=== PATIENT | male | born 1940 | race Hispanic/Latino ===

== ENCOUNTER 2018-05-17 23:11 | Observation (INO) | payer OTHER ==
[~2018-05-17] VITALS: Ht 317.5 cm; Wt 77.1 kg
[~2018-05-17 23:11] MED LIST: AMLODIPINE BESYL5 MG PO; ATENOLOL50 MG PO; CLOPIDOGREL75 MG PO; CRESTOR10 MG PO; LOSARTAN POTAS100 MG PO; XANAX0.25 MG PO
--- OUTSIDE RECORDS SUMMARY | 2018-05-17 23:12 | XMS REPORT ---
Author Author [facility] Address Unknown Phone Unavailable Care Team Providers Care Interventional Physiatrist Name Role Phone Unavailable Unavailable Payers Payer Name Policy Type Policy Number Effective Date Expiration Date Problems This patient has no known problems. Allergies, Adverse Reactions, Alerts Allergy Name Allergy Type Status Severity Reaction(s) Onset Date Inactive Date Treating Clinician Comments Penicillins DA Active U 2008-11-03 00:00:00 Medications This patient has no known medications.
[2018-05-17 23:54] LABS: BASOPHILS % 0.3 % (0.0-1.0); EOSINOPHILS # (AUTO) 0.2 (0.0-0.4); EOSINOPHILS % 2.6 % (0.0-6.0); HEMATOCRIT 41.5 % (38.2-49.6); HEMOGLOBIN 14.5 g/dL (14.0-18.0); LYMPHOCYTES # (AUTO) 1.8 (1.0-3.2); LYMPHOCYTES % 28.9 % (18.0-39.1); MEAN CORPUSCULAR HEMOGLOBIN 34.4 pg (28-32); MEAN CORPUSCULAR HGB CONC 34.9 g/dL (31-35); MEAN CORPUSCULAR VOLUME 98.6 fL (81-99); MONOCYTES # (AUTO) 0.7 (0.2-0.8); MONOCYTES % 10.6 % (4.4-11.3); NEUTROPHILS # (AUTO) 3.5 (2.1-6.9); NEUTROPHILS % 57.4 % (38.7-80.0); PLATELET COUNT 169 x10e3/uL (140-360); RED BLOOD COUNT 4.21 x10e6/uL (4.3-5.7); RED CELL DISTRIBUTION WIDTH 13.1 % (11.7-14.4)
[2018-05-18] VITALS (10 sets, daily range): BP systolic 108–138; BP diastolic 57–71
[2018-05-18 00:10] LABS: INR 0.89; PROTHROMBIN TIME 12.5 seconds (11.9-14.5)
[2018-05-18 00:11] LABS: PARTIAL THROMBOPLASTIN TIME 57.1 seconds (23.8-35.5)
[2018-05-18 00:18] LABS: ALANINE AMINOTRANSFERASE 14 IU/L (0-55); ALBUMIN 3.8 g/dL (3.5-5.0); ALBUMIN/GLOBULIN RATIO 0.9 (0.8-2.0); ALKALINE PHOSPHATASE 86 IU/L (40-150); ANION GAP 12.1 mmol/L (8-16); BLOOD UREA NITROGEN 13 mg/dL (7-26); BUN/CREATININE RATIO 15 (6-25); CALCIUM 9.3 mg/dL (8.4-10.2); CARBON DIOXIDE 26 mmol/L (22-29); CHLORIDE 101 mmol/L (98-107); CREATINE KINASE 114 IU/L (30-200); CREATININE, SERUM 0.89 mg/dL (0.72-1.25); EST GLOMERULAR FILTRATION RATE > 60 ML/MIN (60-); GLUCOSE 151 mg/dL (74-118); MAGNESIUM 2.2 MG/DL (1.3-2.1); POTASSIUM 4.1 mmol/L (3.5-5.1); SODIUM 135 mmol/L (136-145)
--- NOTE | 2018-05-18 00:33 | Diagnostic Imaging Report ---
EXAMINATION: CHEST SINGLE (PORTABLE) INDICATION: ^CHEST PAIN COMPARISON: Chest x-ray 05/16/2015. FINDINGS: AP view TUBES and LINES: None. LUNGS: Lungs are not well inflated. There are bibasilar atelectasis. There is no evidence of pneumonia or pulmonary edema. PLEURA: No pleural effusion or pneumothorax. HEART AND MEDIASTINUM: The cardiomediastinal silhouette is unremarkable. BONES AND SOFT TISSUES: No acute osseous lesion. Soft tissues are unremarkable. UPPER ABDOMEN: No free air under the diaphragm. IMPRESSION: Hypoinflated lungs with bibasilar atelectasis. Signed by: Dr. Juanjose Jorge M.D. on 05/18/2018 12:30 AM
[2018-05-18] MEDS ORDERED: ONDANSETRON HCL INJ 2MG/ML 2ML 2 MG/ML VIAL IV PRN (01:30)
[2018-05-18] MEDS ORDERED: MORPHINE SULFATE INJ 4 MG/ML INJ 1ML IV PRN (01:30)
[2018-05-18] MEDS ORDERED: NITROGLYCERIN 0.4 MG SUBL SL PRN (01:30)
[2018-05-18] MEDS: FAMOTIDINE 20 MG/2 ML VIAL IV SCH ×2 (01:30→12:30)
[2018-05-18] MEDS ORDERED: DEXTROSE 50% SYRINGE 50 ML IV PRN (01:30)
[2018-05-18 01:39] LABS: COLOR,URINE YELLOW (YELLOW)
[2018-05-18 01:40] LABS: BILIRUBIN,URINE NEGATIVE (NEGATIVE); CLARITY,URINE CLEAR (CLEAR); KETONES,URINE NEGATIVE (NEGATIVE); LEUKOCYTE ESTERASE ,URINE NEGATIVE (NEGATIVE); NITRITE,URINE NEGATIVE (NEGATIVE); PROTEIN,URINE DIPSTICK NEGATIVE (NEGATIVE); URINE UROBILINOGEN 0.2 mg/dL (0.2 - 1)
[2018-05-18 01:44] LABS: EPITHELIAL CELLS,URINE FEW /LPF; RBC,URINE 0-5 /HPF (0-5); WBC,URINE (MAN) 0-5 /HPF (0-5)
[2018-05-18] MEDS ORDERED: CRESTOR5 MG PO (02:26)
[2018-05-18] MEDS ORDERED: MONTELUKAST SOD10 MG PO (02:26)
[2018-05-18] MEDS ORDERED: ATENOLOL25 MG PO (02:26)
[2018-05-18] MEDS ORDERED: ISOSORBIDE MONO30 MG PO (02:26)
[2018-05-18] MEDS ORDERED: ASPIR 8181 MG PO (02:27)
--- NOTE | 2018-05-18 02:38 | NUR ---
Pt received from ER. Pt A&O and in no apparent distress. Pt on tele. Pt at bedside. All safety measures ensured.
[2018-05-18] MEDS: INSULIN LISPRO 100 UNIT/1 ML 3ML VIAL SQ SCH ×4 (07:30→21:52)
--- NOTE | 2018-05-18 07:52 | NUR ---
report given and walking rounds complete
[2018-05-18] MEDS ORDERED: REGADENOSON 0.4 MG/5 ML SYR IV ONE (08:54)
[2018-05-18 12:25] LABS: CREATINE KINASE MB 2.9 ng/mL (0-5.0)
[2018-05-18] MEDS: ASPIRIN 81 MG ENTERIC COATED PO SCH (12:30)
[2018-05-18] MEDS: CLOPIDOGREL BISULFATE 75 MG TAB PO SCH (12:30)
--- NOTE | 2018-05-18 13:01 | NUR ---
SPOKE TO DR. BELL, INFORMED OF TROPONIN I OF 0.363, DR. BELL ORDERED NITRO PASTE TO START OF 2ND PART OF STRESS TEST.
--- NOTE | 2018-05-18 14:42 | Consultation ---
DATE OF CONSULTATION: 05/18/2018 REASON FOR CONSULTATION: Chest pain. CONSULTING PHYSICIAN: Dr. Frost. HISTORY OF PRESENT ILLNESS: This is a pleasant 77-year-old male, who presented with chest pain. According to the patient, yesterday he started having left-sided chest pain that felt like heavy pressure on a scale of 8/10 with no radiation. He stated that chest pain got worse with activity that he decided to come to the emergency room for evaluation. He has history of CAD with multiple stents in the past and has not had any stress test within the last 2-3 years. He denied any palpitation, any diaphoresis, any headache, nausea, or vomiting. Troponin x1 was negative. EKG showed normal sinus rhythm with no ST abnormalities. PAST MEDICAL HISTORY: Diabetes, hypertension, hyperlipidemia, CAD. PAST SURGICAL HISTORY: Cholecystectomy and cardiac catheterization. FAMILY HISTORY: Positive for CAD. SOCIAL HISTORY: No smoking. No drinking. He lives at home with the . MEDICATIONS: He was on amlodipine, aspirin, Plavix, Imdur, Singulair, Crestor, and atenolol. ALLERGIES: HE IS ALLERGIC TO PENICILLIN AND ATORVASTATIN. REVIEW OF SYSTEMS: Negative except those mentioned above. PHYSICAL EXAMINATION: VITAL SIGNS: Temperature 97, heart rate 52, blood pressure 124/58, respirations 16, oxygen saturation 95% on room air. GENERAL: He is awake, alert, and oriented x3. HEENT: Mucous membranes moist. NECK: Supple. LUNGS: Bilateral clear to auscultation. CARDIOVASCULAR: S1, S2 present. ABDOMEN: Soft. NEUROLOGICAL: Intact. EXTREMITIES: With no edema. LABS: Sodium 135, potassium 4.1, chloride 101, CO2 of 26, BUN 13, creatinine 0.89, glucose 151. White blood cell 6.13, hemoglobin 14.5, hematocrit 41.5, platelets 169. PT 12.5, PTT 57.1, INR 0.89. IMPRESSION: 1. Chest pain. 2. Coronary artery disease with stents. 3. Diabetes. 4. Hypertension. 5. Hyperlipidemia. PLAN: 1. We will get serial cardiac enzymes. 2. We will get an echocardiogram to assess the LV and the valve function. 3. Due to his cardiac history of stents and no recent stress test, we will go ahead and [email or web address] Risk and benefit explained to him and he agreed, so we will put him n.p.o. and get a consent. 4. We will continue home medications. Further cardiac workup pending clinical course. Thank you for this consultation. Dictated by Juni Stevenson, DIANE MD TRICIA Shepherd/JENS /[id number]
[2018-05-18] MEDS: NITROGLYCERIN 2% OINT 1 GM PKT TOP SCH ×2 (15:01→18:44)
[2018-05-18] MEDS ORDERED: ONDANSETRON HCL 4 MG ORAL DISINTEGRATING TAB PO PRN (16:45)
[2018-05-18] MEDS ORDERED: FAMOTIDINE 20 MG TAB PO SCH (17:00)
[2018-05-18 17:13] LABS: CREATINE KINASE MB 2.9 ng/mL (0-5.0)
--- NOTE | 2018-05-18 18:45 | NUR ---
Got report from previous nurse. Call light within reach. patient in bed. No pain or distress noted. at bedside
[2018-05-18] MEDS: FAMOTIDINE 20 MG TAB PO SCH (21:50)
[2018-05-19] MEDS: NITROGLYCERIN 2% OINT 1 GM PKT TOP SCH ×3 (00:29→13:22)
[2018-05-19 04:37] VITALS: BP 126/60
[2018-05-19 06:12] LABS: CHOL/HDL RATIO 2.6 (3.9-4.7)
--- NOTE | 2018-05-19 07:12 | NUR ---
Gave report to oncoming nurse. Call light within reach. Patient in bed. at bedside
[2018-05-19] MEDS: INSULIN LISPRO 100 UNIT/1 ML 3ML VIAL SQ SCH ×2 (07:30→13:21)
[2018-05-19 08:38] VITALS: BP 130/73
[2018-05-19] MEDS ORDERED: NITROGLYCERIN 0.4 MG SUBL SL PRN (10:45)
[2018-05-19] MEDS: CLOPIDOGREL BISULFATE 75 MG TAB PO SCH (11:51)
[2018-05-19] MEDS: FAMOTIDINE 20 MG TAB PO SCH (11:51)
[2018-05-19] MEDS: ASPIRIN 81 MG ENTERIC COATED PO SCH (11:51)
[2018-05-19 12:00] VITALS: BP 118/78
[2018-05-19 13:40] VITALS: BP 118/78
[2018-05-19] MEDS ORDERED: LORATADINE10 MG PO (15:06)
[2018-05-19] MEDS ORDERED: FLUTICASONE PRO16 GM (15:09)
[2018-05-19] MEDS ORDERED: TESSALON PERLE100 MG PO (15:10)
[2018-05-19] MEDS ORDERED: MEDROL PO (15:13)
[2018-05-19 16:00] VITALS: BP 147/77
--- NOTE | 2018-05-19 20:50 | Discharge Summary ---
PRIMARY CARE PHYSICIAN: Juventino Cross MD. CONSULTANTS: Fran Patiño MD FINAL DIAGNOSES: 1. Upper respiratory symptoms with most likely allergies, chest congestion, cough. 2. Status post Myoview Cardiolite stress test, only small fixed defect, no active ischemia. 3. Baseline coronary artery disease with previous stents. SUMMARY: The patient is a 77-year-old male with some sinus congestion, cough, and developed some atypical chest pain. The patient came in for evaluation since he has coronary artery disease history. The patient's cardiac enzymes negative. Stress test otherwise unremarkable. No reversible defect. The patient has been cleared by Dr. Malka Pearson and with Dr. Fran Patiño to go home. The patient is otherwise stable. DISCHARGE MEDICATIONS: Discharged home with: 1. Claritin 10 mg daily. 2. Medrol Dosepak. 3. Flonase along with Tessalon Perles. DISPOSITION: The patient is otherwise stable, discharged home today. Follow up with Dr. Patiño as an outpatient. MD MICHELLE Salinas/MODL /[id number]
--- NOTE | 2018-05-21 10:11 | Myoview Stress Test ---
DATE OF STUDY: 05/18/2018 08:29:00 Stress Test - Treadmill ONLY INDICATION: Chest pain. DESCRIPTION OF PROCEDURE: After informed consent, the patient was brought to the stress lab. He was given 11 mCi of technetium-99m Myoview and myocardial perfusion SPECT images obtained in the horizontal long axis and short axis and vertical long axis views. Subsequently, the patient was given 28.1 mCi of technetium-99m Myoview and myocardial perfusion SPECT images obtained in horizontal long and short axis and vertical long axis. Gated images were also obtained. The patient tolerated the procedure without any complication. REPORT: Baseline EKG shows sinus rhythm at 80 beats per minute, normal axis. Right bundle branch block. ST depression V4 to V6. Parameters: 1. Resting heart rate is 80 beats per minute. 2. Maximum heart rate is 104 beats per minute. 3. Resting blood pressure is 126/71 mmHg. 4. Maximum blood pressure 140/77 mmHg. REASON FOR TERMINATION: End point attained. INTERPRETATION: 1. Negative for chest pain. 2. Negative for arrhythmias. 3. Blood pressure response consistent with Lexiscan. 4. More prominent ST depression noted during stress compared to baseline. 5. Analysis of SPECT images reveals [id number] area of decreased radioisotope uptake in the anterior apical and septal davis, which reverses partially in the septal wall. CONCLUSION: The study demonstrates small-to moderate area of anteroapical infarction. There is a small area of septal ischemia. Hypokinesis of the anteroapical wall is noted. Overall ejection fraction is 39%. Fran Patiño MD SC/MODL /[id number]
== END 2018-05-19 16:01 | disposition home or self-care (01) ==
LOC: ER 23:11 → ERHOLD 05-18 01:34 → IMCU 05-18 02:38
PROVIDERS: ADMIT Internal Medicine; ATTEND Internal Medicine
DX: R07.89 Other chest pain (principal); I25.10 Atherosclerotic heart disease of native coronary artery without angina pectoris; I10 Essential (primary) hypertension; E11.9 Type 2 diabetes mellitus without complications; E78.5 Hyperlipidemia, unspecified; J06.9 Acute upper respiratory infection, unspecified; Z88.0 Allergy status to penicillin; Z88.8 Allergy status to other drugs, medicaments and biological substances; Z95.5 Presence of coronary angioplasty implant and graft; Z82.49 Family history of ischemic heart disease and other diseases of the circulatory system; Z79.82 Long term (current) use of aspirin
CPT/HCPCS: 36415 ×3; 71045; 78452; 80053; 80061; 81001; 82550 ×2; 82553 ×2; 82948 ×2; 83735; 84484 ×2; 85025; 85610; 85730; 93005 ×2; 93017; 93306; 99284; A9502; G0378 ×2; J2785

== ENCOUNTER 2018-05-21 16:04 | Emergency (ER) | payer OTHER ==
[~2018-05-21 16:04] MED LIST changes: +ASPIR 8181 MG PO; +ATENOLOL25 MG PO; +CRESTOR5 MG PO; +FLUTICASONE PRO16 GM; +ISOSORBIDE MONO30 MG PO; +LORATADINE10 MG PO; +MEDROL PO; +MONTELUKAST SOD10 MG PO; +TESSALON PERLE100 MG PO
== END 2018-05-21 16:26 | disposition short-term general hospital (02) ==
LOC: ER 16:04
DX: R07.9 Chest pain, unspecified (principal)

== ENCOUNTER → 2018-11-05 | Outpatient (RCR) | payer OTHER ==
--- NOTE | 2018-10-11 12:01 | NUR ---
Voice/Speech Evaluation History: Mr. Conley is a 78 year old male seen at the [facility] for a Voice and Speech Evaluation. PMH includes HTN, heart stents, and depression/anxiety, and possible Parkinsons disease. Per pt/spouse report, pt recently had a head CT completed that showed h/o two CVAs, both several years ago. Pt/spouse stated they are no longer sure if pt still has diagnosis of Parkinsons disease. He does not currently take any medication specifically to treat Parkinsons Disease. Per report, pt began demonstrating symptoms of PD several years ago, but was only diagnosed with possible PD two months ago. Per report, the first symptom was decreased volume of speech and stuttering. Pt then added that hes been walking more slowly for a long time. He denied any falls, but reported that for the last two or three months he has felt very unsteady and is very afraid of falling. Mr. Conley complained that his voice is very soft and people frequently ask him to repeat himself. He described his voice as hoarse and scratchy and at a lower pitch than normal. Pt is retired and lives at home with his . He does not have great vocal demand but would like to be understood the first time he says something. He must concentrate on speaking slowly or his speech gets out of control with stuttering. He feels embarrassed about his voice, so much so that he frequently avoids participating in conversation. Mr. Conley denied any difficulty swallowing. However, he reported frequent coughing. He believed this was due to a chemical exposure many years ago at work. Provided extensive ed re: swallowing difficulty related to Parkinsons Disease. Pt/spouse denied any coughing/choking with meals. Pt noted to cough with each of four sips of water. Current medications: no medications reported Patient/family Goal: to be understood when he speaks Evaluation Results: Acoustic measures: Sound Pressure Level (SPL, acoustic correlate of vocal loudness) measured with a sound level meter at a distance of 40 cm from mouth during 3 voice and speech tasks revealed the following SPL numbers: AverageRangeAdult Male Norm SUSTAINED VOWELS:64 dB61-70 dB80-85 dB READIN dB61-67 dB80-85 dB CONVERSATION:64 dB61-70 dB80-85 dB LENGTH OF SUSTAINED VOWEL11 seconds6-16 [id number] seconds These results represented conversational vocal SPL levels and reduced vocal intonation that likely significantly reduce Mr. Tong speech intelligibility and communicative effectiveness. He also has difficulty with vocal fading and reduced diaphragmatic support, lending to quiet speech. Perceptual measures: Mr. Tong functional speech intelligibility is reduced 75% of the time. The patient reported that he is not loud enough in conversation 90% of the time. 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 Oral Motor Examination: An oral motor speech exam revealed the structures and function of Mr. Tong speech mechanism to be within normal limits. Average pitch range for sustained vowel was 148-250 Hz. Normal pitch range for adult males is 65-260 Hz. Stimulability Testing: Stimulability testing was completed to determine Mr. Tong stimulability for the [facility] LOU[facility] ([facility]) program. With stimulation and cues to increase loudness, Mr. Conley maintained vocal loudness during sustained vowel phonation at 80 dB, and increased his speech loudness in functional phrases to 79 dB. Length of sustained phonation was 9 seconds. Vocal quality improved and frequency of stuttering decreased with increased loudness. 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 Voice deficits included reduced loudness, reduced pitch range, and poor breath support, which contributed to an overall decrease in speech intelligibility. Based on stimulability testing, Mr. Conley appears to be a good candidate for the [facility]T LOU[facility] program. He falls below average speech production of adult males of 80-85 dB. He would benefit from training in LSVT LOUD to improve speech production including duration of speech, intelligibility, and participation in conversation in social situations. Prognosis: Good for goals secondary to high level of patient motivation Recommendations: 1. It is recommended that Mr. Conley participate in the [facility]T LOU[facility] program, which is comprised of 16 intensive sessions (4 days per week for 4 weeks; 60 minute sessions) of voice treatment. 2.Recommend modified barium swallow study to r/o aspiration and determine if treatment is indicated. 3.Recommend evaluation and treatment as indicated by a physical therapist. Long-Term Goal: Patient will use a loud voice to communicate effectively in daily interactions with family and friends with independence. Short-Term Goals (first 2 weeks): 1.Patient will increase vocal loudness during sustained phonation to reach a target sound pressure level of 80 dB with minimal cues measured at 40 cm from SPL instrument. 2.Patient will increase length of sustained vowel to 10-15 seconds with minimal assistance. 3.Patient will increase pitch range of sustained vowel to 85-300 Hz with minimal assistance. 4.Pt will produce common, functional phrases to promote carry-over of techniques into the home environment at a target sound pressure level of 80 dB with minimal cues measured at 40 cm from SPL instrument. 5.Patient will increase vocal loudness to reach a target sound pressure level of 80 dB while reading at the word and sentence level with minimal cues measured at 40 cm from SPL instrument. 6.Patient will increase vocal loudness to reach a target sound pressure level of 80 dB during simple, structured conversational speech with minimal cues measured at 40 cm from SPL instrument. Short-Term Goals (next 2 weeks): 1.Patient will reach a target sound pressure level of 80-85 dB measured at 40 cm from SPL instrument during sustained phonation with minimal to no cues to increase loudness and to increase duration of phonation. 2.Patient will increase length of sustained vowel to 10-15 seconds with minimal to no cues. 3.Patient will increase pitch range of sustained vowel to 85-300 Hz with minimal to no cues. 4.Pt will produce common, functional phrases to promote carry-over of techniques into the home environment at a target sound pressure level of 80 dB with minimal to no cues measured at 40 cm from SPL instrument. 5.Patient will increase vocal loudness to read a target sound pressure level of 80 dB during more complex paragraph level reading with minimal cues measured at 40 cm from EDUCATION AND OUTREACH COORDINATOR instrument. 6.Patient will increase vocal loudness to reach a target sound pressure level of 80 dB during structured and unstructured conversational speech with minimal to no cues measured at 40 cm from SPL instrument. Deirdre Beck M.A. [facility]-EDUCATION AND OUTREACH COORDINATOR LSVT LOUD Certified Clinician Date of Eval: 06/26/18 Voice Evaluation X 60 minutes NOMS Voice Level 3
--- NOTE | 2018-10-25 09:03 | NUR ---
ST NOTE: Pt cx session of Speech therapy today due to inclement weather. Next session 10/26/18 at 1000.
== END ==
LOC: ST 10-11 10:15 → PT 10-29 08:28
PROVIDERS: ATTEND Psychiatry & Neurology Clinical Neurophysiology
DX: G20 Parkinson's disease (principal); R49.0 Dysphonia; I10 Essential (primary) hypertension; F41.9 Anxiety disorder, unspecified; Z95.5 Presence of coronary angioplasty implant and graft

== ENCOUNTER → 2018-12-06 | Outpatient (RCR) | payer OTHER ==
--- NOTE | 2018-11-08 11:38 | NUR ---
Voice Re-assessment and Treatment History: Mr. Conley is a 78 year old male seen at the [facility] for a Voice and Speech Evaluation. PMH includes HTN, heart stents, and depression/anxiety, and possible Parkinsons disease. Per pt/spouse report, pt recently had a head CT completed that showed h/o two CVAs, both several years ago. Pt/spouse stated they are no longer sure if pt still has diagnosis of Parkinsons disease. He does not currently take any medication specifically to treat Parkinsons Disease. Per report, pt began demonstrating symptoms of PD several years ago, but was only diagnosed with possible PD two months ago. Per report, the first symptom was decreased volume of speech and stuttering. Pt then added that hes been walking more slowly for a long time. He denied any falls, but reported that for the last two or three months he has felt very unsteady and is very afraid of falling. Mr. Conley complained that his voice is very soft and people frequently ask him to repeat himself. He described his voice as hoarse and scratchy and at a lower pitch than normal. Pt is retired and lives at home with his . He does not have great vocal demand but would like to be understood the first time he says something. He must concentrate on speaking slowly or his speech gets out of control with stuttering. He feels embarrassed about his voice, so much so that he frequently avoids participating in conversation. Mr. Conley denied any difficulty swallowing. However, he reported frequent coughing. He believed this was due to a chemical exposure many years ago at work. Provided extensive ed re: swallowing difficulty related to Parkinsons Disease. Pt/spouse denied any coughing/choking with meals. Pt noted to cough with sips of water during therapy. Current medications: no medications reported Patient/family Goal: to be understood when he speaks Evaluation Results: Acoustic measures: Sound Pressure Level (SPL, acoustic correlate of vocal loudness) measured with a sound level meter at a distance of 40 cm from mouth during 9 sessions of LSVT voice and speech tasks revealed the following SPL numbers: Average Range Adult Male Norm SUSTAINED VOWELS: 92 dB 87-95 dB 80-85 dB READIN dB 67-75 dB 80-85 dB CONVERSATION: 67 dB 67-69 dB 80-85 dB LENGTH OF SUSTAINED VOWEL 13.1 seconds 10.3-14.8 seconds 15-25 seconds These results represented conversational vocal SPL levels and reduced vocal intonation that likely significantly reduce Mr. Tong speech intelligibility and communicative effectiveness. He also has difficulty with vocal fading and reduced diaphragmatic support, lending to quiet speech. Perceptual measures: Mr. Tong functional speech intelligibility is reduced 75% of the time. The patient reported that he is not loud enough in conversation 90% of the time. 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 Oral Motor Examination: An oral motor speech exam revealed the structures and function of Mr. Tong speech mechanism to be within normal limits. 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 Voice deficits included reduced loudness, reduced pitch range, and poor breath support, which contributed to an overall decrease in speech intelligibility. Based on stimulability testing, Mr. Conley appears to be a good candidate for the LSVT LOUD program. He falls below average speech production of adult males of 80-85 dB. He would benefit from training in LSVT LOUD to improve speech production including duration of speech, intelligibility, and participation in conversation in social situations. Prognosis: Good for goals secondary to high level of patient motivation Pt seen for [facility] ([facility] LOU[facility]) secondary to a moderate voice disorder. Short-Term Goals (second 2 weeks) and progress follow: 1.Patient will reach a target sound pressure level of 80-85 dB measured at 40 cm from SPL instrument during sustained phonation with minimal to no cues to increase loudness and to increase duration of phonationpt produced sustained phonation at an average of 95 dB measured 40 cm from SPL instrument. 2.Patient will increase length of sustained vowel to 10-15 seconds with minimal assistancept produced sustained phonation for an average of 10.3 seconds. 3.Patient will increase pitch range of sustained vowel to 85-300 Hz with minimal assistancept produced sustained phonation at an average range of 122-441 Hz. 4.Pt will produce common, functional phrases to promote carry-over of techniques into the home environment at a target sound pressure level of 80 dB with minimal cues measured at 40 cm from SPL instrumentpt produced functional phrases at an average of 70 dB measured at 40 cm from SPL instrument. 5.Patient will increase vocal loudness to read a target sound pressure level of 80 dB during sentence level reading with minimal cues measured at 40 cm from COMMODITY SPECIALIST instrumentpt produced paragraph reading at an average of 70 dB measured at 40 cm from SPL instrument. 6.Patient will increase vocal loudness to reach a target sound pressure level of 80 dB during structured and unstructured conversational speech with minimal to no cues measured at 40 cm from SPL instrumentpt participated in simple structured conversation at an average of 67 dB measured at 40 cm from SPL instrument. Assessment: Excellent participation in and tolerance of therapy. Decrease in loudness in reading aloud expected since level of demand has increased. Pt continues to have decreased volume during unstructured conversational speech, especially at the end of sentences, but is very responsive to cues to increase loudness. Education completed as indicated with pt indicating understanding. Plan: CPOC Rachel Ramirez M.S. CCC-COMMODITY SPECIALIST [facility]SVT L[facility] Certified Clinician Date of Eval: 11/08/18 Voice re-assessment and treatment X 45 minutes NOMS Voice Level 3 MD Signature date
--- NOTE | 2018-11-15 10:33 | NUR ---
ST NOTE: Pt missed therapy apt due to MD apt, pt with unsteady BP. He will call if he will not be present for therapy apt on 11/16/18
--- NOTE | 2018-11-16 10:20 | NUR ---
ST NOTE: PT missed therapy session, next apt scheduled for Monday, will call pt prior to next visit, pt with MD apt yesterday.
--- NOTE | 2018-11-23 11:09 | NUR ---
Voice Re-assessment/discharge and Treatment History: Mr. Conley is a 78 year old male seen at the [facility] for a Voice and Speech Evaluation. PMH includes HTN, heart stents, and depression/anxiety, and possible Parkinsons disease. Per pt/spouse report, pt recently had a head CT completed that showed h/o two CVAs, both several years ago. Pt/spouse stated they are no longer sure if pt still has diagnosis of Parkinsons disease. He does not currently take any medication specifically to treat Parkinsons Disease. Per report, pt began demonstrating symptoms of PD several years ago, but was only diagnosed with possible PD two months ago. Per report, the first symptom was decreased volume of speech and stuttering. Pt then added that hes been walking more slowly for a long time. He denied any falls, but reported that for the last two or three months he has felt very unsteady and is very afraid of falling. Mr. Conley complained that his voice is very soft and people frequently ask him to repeat himself. He described his voice as hoarse and scratchy and at a lower pitch than normal. Pt is retired and lives at home with his . He does not have great vocal demand but would like to be understood the first time he says something. He must concentrate on speaking slowly or his speech gets out of control with stuttering. He feels embarrassed about his voice, so much so that he frequently avoids participating in conversation. Mr. Conley denied any difficulty swallowing. However, he reported frequent coughing. He believed this was due to a chemical exposure many years ago at work. Provided extensive ed re: swallowing difficulty related to Parkinsons Disease. Pt/spouse denied any coughing/choking with meals. Pt noted to cough with sips of water during therapy. Current medications: no medications reported Patient/family Goal: to be understood when he speaks Evaluation Results: Acoustic measures: Sound Pressure Level (SPL, acoustic correlate of vocal loudness) measured with a sound level meter at a distance of 40 cm from mouth during 9 sessions of LSVT voice and speech tasks revealed the following SPL numbers: Average Range Adult Male Norm SUSTAINED VOWELS: 91 dB 87-95 dB 80-85 dB READIN dB 66-75 dB 80-85 dB CONVERSATION: 68 dB 67-69 dB 80-85 dB LENGTH OF SUSTAINED VOWEL 13.1 seconds 10.3-14.8 seconds 15-25 seconds These results represented conversational vocal SPL levels and reduced vocal intonation that likely significantly reduce Mr. Tong speech intelligibility and communicative effectiveness. He also has difficulty with vocal fading and reduced diaphragmatic support, lending to quiet speech. Perceptual measures: Mr. Tong functional speech intelligibility is reduced 75% of the time. The patient reported that he is not loud enough in conversation 90% of the time. 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 Oral Motor Examination: An oral motor speech exam revealed the structures and function of Mr. Tong speech mechanism to be within normal limits. 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 Voice deficits included reduced loudness, reduced pitch range, and poor breath support, which contributed to an overall decrease in speech intelligibility. Based on stimulability testing, Mr. Conley appears to be a good candidate for the LSVT LOUD program. He falls below average speech production of adult males of 80-85 dB. He would benefit from training in LSVT LOUD to improve speech production including duration of speech, intelligibility, and participation in conversation in social situations. Prognosis: Good for goals secondary to high level of patient motivation Pt seen for [facility] Voice [facility] (LSVT LOUD) secondary to a moderate voice disorder. Short-Term Goals (second 2 weeks) and progress follow: 1.Patient will reach a target sound pressure level of 80-85 dB measured at 40 cm from SPL instrument during sustained phonation with minimal to no cues to increase loudness and to increase duration of phonationpt produced sustained phonation at an average of 94 dB measured 40 cm from SPL instrument. 2.Patient will increase length of sustained vowel to 10-15 seconds with minimal assistancept produced sustained phonation for an average of 12.5 seconds. 3.Patient will increase pitch range of sustained vowel to 85-300 Hz with minimal assistancept produced sustained phonation at an average range of 112-461 Hz. 4.Pt will produce common, functional phrases to promote carry-over of techniques into the home environment at a target sound pressure level of 80 dB with minimal cues measured at 40 cm from SPL instrumentpt produced functional phrases at an average of 70 dB measured at 40 cm from SPL instrument. 5.Patient will increase vocal loudness to read a target sound pressure level of 80 dB during sentence level reading with minimal cues measured at 40 cm from AMUSEMENT [employer]IC instrumentpt produced paragraph reading at an average of 67 dB measured at 40 cm from SPL instrument. 6.Patient will increase vocal loudness to reach a target sound pressure level of 80 dB during structured and unstructured conversational speech with minimal to no cues measured at 40 cm from SPL instrumentpt participated in simple structured conversation at an average of 68 dB measured at 40 cm from SPL instrument. Assessment: Excellent participation in and tolerance of therapy. Decrease in loudness in reading aloud expected since level of demand has increased. Pt continues to have decreased volume during unstructured conversational speech, especially at the end of sentences, but is very responsive to cues to increase loudness. Education completed as indicated with pt indicating understanding. Plan: Discharge pt from voice therapy. Pt has had decrease in progress secondary to fluctuating blood pressure. Pt would benefit from d/c as he completed the LSVT Program with several rescheduled appointments and medical concerns. Recommend re-assess pt for voice quality in February of 2019 along with Modified Barium Swallow to assess swallow function. Rachel Ramirez M.S. CCC-AMUSEMENT [employer] LSVT LOUD Certified Clinician Date of Eval: 11/23/18 Voice re-assessment/discharge and treatment X 50 minutes NOMS Voice Level 4
== END ==
LOC: PT 11-07 10:05 → ST 11-09 09:55 → PT 11-12 10:45 → ST 11-13 09:59 → PT 11-22 10:07 → ST 11-23 09:57 → PT 12-03 11:00
PROVIDERS: ATTEND Psychiatry & Neurology Clinical Neurophysiology
DX: G20 Parkinson's disease (principal); R49.9 Unspecified voice and resonance disorder; I10 Essential (primary) hypertension; F41.9 Anxiety disorder, unspecified; F32.9 Major depressive disorder, single episode, unspecified; I69.30 Unspecified sequelae of cerebral infarction; Z95.5 Presence of coronary angioplasty implant and graft

== ENCOUNTER 2018-12-28 10:50 | Outpatient (RCR) | payer OTHER | END 2019-01-05 | LOC: PT 10:50 | PROVIDERS: ATTEND Psychiatry & Neurology Clinical Neurophysiology | DX: G20 Parkinson's disease (principal); R49.8 Other voice and resonance disorders; I10 Essential (primary) hypertension; F41.9 Anxiety disorder, unspecified; Z95.5 Presence of coronary angioplasty implant and graft ==

== ENCOUNTER → 2019-02-08 | Outpatient (CLI) | payer MEDICARE ==
--- NOTE | 2019-02-08 12:46 | Diagnostic Imaging Report ---
PROCEDURE: X-RAY MODIFIED BARIUM SWALLOW COMPARISON: None. INDICATION: Aspiration Radiation Details: Fluoroscopy time: 1.3 minutes Cumulative dose: 4.8 mGy DISCUSSION: Fluoroscopic examination was performed in conjunction with speech pathology during swallowing a variety of thin and thick liquid consistencies. Provided images demonstrate no laryngeal penetration or aspiration. CONCLUSION: Modified barium swallow demonstrating no laryngeal penetration or aspiration. Please refer to the speech pathology report for further details. Signed by: Janine Lopez MD on 02/08/2019 12:43 PM
== END ==
LOC: DX 10:33
PROVIDERS: ATTEND Psychiatry & Neurology Clinical Neurophysiology
DX: R13.10 Dysphagia, unspecified (principal); G20 Parkinson's disease; I10 Essential (primary) hypertension; F41.9 Anxiety disorder, unspecified; Z86.73 Personal history of transient ischemic attack (TIA), and cerebral infarction without residual deficits; Z95.5 Presence of coronary angioplasty implant and graft
CPT/HCPCS: 74230

== ENCOUNTER 2019-12-22 19:44 | Emergency (ER) | payer MEDICARE, OTHER ==
[~2019-12-22] VITALS: Ht 317.5 cm; Wt 77.1 kg
[2019-12-22 20:17] LABS: BASOPHILS % 0.1 % (0.0-1.0); EOSINOPHILS % 0.4 % (0.0-6.0); HEMATOCRIT 39.3 % (38.2-49.6); HEMOGLOBIN 13.9 g/dL (14.0-18.0); LYMPHOCYTES # (AUTO) 0.9 (1.0-3.2); LYMPHOCYTES % 9.7 % (18.0-39.1); MEAN CORPUSCULAR HEMOGLOBIN 33.9 pg (28-32); MEAN CORPUSCULAR HGB CONC 35.4 g/dL (31-35); MEAN CORPUSCULAR VOLUME 95.9 fL (81-99); MONOCYTES # (AUTO) 0.5 (0.2-0.8); MONOCYTES % 5.7 % (4.4-11.3); NEUTROPHILS # (AUTO) 7.6 (2.1-6.9); NEUTROPHILS % 83.6 % (38.7-80.0); PLATELET COUNT 171 x10e3/uL (140-360); RED CELL DISTRIBUTION WIDTH 12.7 % (11.7-14.4)
[2019-12-22 20:36] LABS: ALBUMIN 3.8 g/dL (3.5-5.0); ALBUMIN/GLOBULIN RATIO 0.9 (0.8-2.0); ALKALINE PHOSPHATASE 71 IU/L (40-150); ANION GAP 12.7 mmol/L (8-16); BLOOD UREA NITROGEN 13 mg/dL (7-26); BUN/CREATININE RATIO 16 (6-25); CALCIUM 8.5 mg/dL (8.4-10.2); CARBON DIOXIDE 22 mmol/L (22-29); CHLORIDE 97 mmol/L (98-107); CREATINE KINASE 51 IU/L (30-200); EST GLOMERULAR FILTRATION RATE > 60 ML/MIN (60-); GLUCOSE 124 mg/dL (74-118); POTASSIUM 3.7 mmol/L (3.5-5.1); SODIUM 128 mmol/L (136-145)
--- NOTE | 2019-12-22 20:38 | Emergency Department Note ---
History of Present Illnes History of Present Illness Chief Complaint: COVID PUI History of Present Illness This is a 79 year old male (COVID + 12/12/2019) PRESENTS TO ED WITH REPORT OF HICCUPS CAUSING CHEST TIGHTNESS PER PTS DAUGHTER, PT DENIES ANY CHEST PAIN, TIGHTNESS, OR PRESSURE, NO HICCUPS NOTED; DAUGHTER STATES PT IS STRESSED PTS SPOUSE "IS ADMITTED IN ICU AND NOT DOING WELL." RESP ARE EVEN AND UNLABORED, O2 SAT RA 99%; SKIN WARM, DRY, COLOR WNL FOR PT. Historian: Patient, Family Member Arrival Mode: Car Onset (how long ago): hour(s) (12) Location: THROAT, CHEST Quality: HICCUPS, CHEST TIGHTNESS Radiation: Reports non-radiation Severity: mild Onset quality: sudden Duration (how long): hour(s) (12) Timing of current episode: constant Progression: resolved Chronicity: new Context: Reports recent illness (POSITIVE FOR COVID 19 10 DAYS AGO) Relieving factors: none Exacerbating factors: none Associated symptoms: Reports denies other symptoms Treatments prior to arrival: none Past Medical/Family History Physician Review I have reviewed the patient's past medical and family history. Any updates have been documented here. Past Medical History Recent Fever: No Clinical Suspicion of Infectio: No New/Unexplained Change in Ment: No Past Medical History: Hypertension, Diabetes Other Medical History: COVID + 12/12/[address] Freddy MARTINES'S OFFICE Past Surgical History: None Social History Smoking Cessation: Never Smoker Counseling Performed: No Alcohol Use: None Any Illegal Drug Use: No Physically hurt or threatened: No Other Last Tetanus: UTD Any Pre-Existing Lines (PICC,: No Review of Systems Review of Systems Constitutional: Reports no symptoms EENTM: Reports as per HPI Cardiovascular: Reports as per HPI Respiratory: Reports no symptoms Gastrointestinal: Reports no symptoms Genitourinary: Reports no symptoms Musculoskeletal: Reports no symptoms Integumentary: Reports no symptoms Neurological: Reports no symptoms Psychological: Reports no symptoms Endocrine: Reports no symptoms Hematological/Lymphatic: Reports no symptoms Physical Exam Related Data Allergies: Coded Allergies: penicillin (Verified Allergy, Mild, RASH/ FEVER, 05/16/15) atorvastatin (Verified Allergy, Unknown, 05/17/18) Triage Vital Signs Vital Signs Date Time Temp Pulse Resp B/P (MAP) Pulse Ox O2 Delivery O2 Flow Rate FiO2 12/22/19 19:50 100.5 84 16 154/72 99 Room Air Vital signs reviewed: Yes Physical Exam CONSTITUTIONAL Constitutional: Present well-developed, Present well-nourished; Absent distressed HENT HENT: Present normocephalic, Present atraumatic, Present oropharynx clear/moist, Present nose normal HENT L/R: Present left ext ear normal, Present right ext ear normal EYES Eyes: Reports PERRL, Reports conjunctivae normal NECK Neck: Present ROM normal PULMONARY Pulmonary: Present effort normal, Present breath sounds normal CARDIOVASCULAR Cardiovascular: Present regular rhythm, Present heart sounds normal, Present capillary refill normal, Present normal rate GASTROINTESTINAL Abdominal: Present soft, Present nontender, Present bowel sounds normal GENITOURINARY Genitourinary: Present exam deferred SKIN Skin: Present warm, Present dry MUSCULOSKELETAL Musculoskeletal: Present ROM normal NEUROLOGICAL Neurological: Present alert, Present oriented x 3, Present no gross motor or sensory deficits PSYCHOLOGICAL Psychological: Present mood/affect normal, Present judgement normal Results Laboratory Result Diagram: 12/22/192002 Laboratory Laboratory Tests Test 12/22/19 20:21 12/22/19 20:09 12/22/19 20:03 Lactic Acid Level 1.0 mmol/L (0.5-2.0) Urine Color Yellow (YELLOW) Urine Clarity Clear (CLEAR) Urine pH 8.5 (5 - 7) Urine Specific [place] 1.020 (1.010-1.025) Urine Protein Negative (NEGATIVE) Urine Glucose (UA) Negative (NEGATIVE) Urine Ketones Negative (NEGATIVE) Urine Blood Trace (NEGATIVE) Urine Nitrite Negative (NEGATIVE) Urine Bilirubin Negative (NEGATIVE) Urine Urobilinogen 1 mg/dL (0.2 - 1) Urine Leukocyte Esterase Negative (NEGATIVE) Urine RBC 0-5 /HPF (0-5) Urine WBC 0-5 /HPF (0-5) Urine Epithelial Cells Few /LPF (NONE) Urine Bacteria Few /HPF (NONE) White Blood Count 9.15 x10e3/uL (4.8-10.8) Red Blood Count 4.10 x10e6/uL (4.3-5.7) Hemoglobin 13.9 g/dL (14.0-18.0) Hematocrit 39.3 % (38.2-49.6) Mean Corpuscular Volume 95.9 fL (81-99) Mean Corpuscular Hemoglobin 33.9 pg (28-32) Mean Corpuscular Hemoglobin Concent 35.4 g/dL (31-35) Red Cell Distribution Width 12.7 % (11.7-14.4) Platelet Count 171 x10e3/uL (140-360) Neutrophils (%) (Auto) 83.6 % (38.7-80.0) Lymphocytes (%) (Auto) 9.7 % (18.0-39.1) Monocytes (%) (Auto) 5.7 % (4.4-11.3) Eosinophils (%) (Auto) 0.4 % (0.0-6.0) Basophils (%) (Auto) 0.1 % (0.0-1.0) Neutrophils # (Auto) 7.6 (2.1-6.9) Lymphocytes # (Auto) 0.9 (1.0-3.2) Monocytes # (Auto) 0.5 (0.2-0.8) Eosinophils # (Auto) 0.0 (0.0-0.4) Basophils # (Auto) 0.0 (0.0-0.1) Absolute Immature Granulocyte (auto 0.05 x10e3/uL (0-0.1) Sodium Level 128 mmol/L (136-145) Potassium Level 3.7 mmol/L (3.5-5.1) Chloride Level 97 mmol/L (98-107) Carbon Dioxide Level 22 mmol/L (22-29) Anion Gap 12.7 mmol/L (8-16) Blood Urea Nitrogen 13 mg/dL (7-26) Creatinine 0.80 mg/dL (0.72-1.25) Estimat Glomerular Filtration Rate > 60 ML/MIN (60-) BUN/Creatinine Ratio 16 (6-25) Glucose Level 124 mg/dL (74-118) Calcium Level 8.5 mg/dL (8.4-10.2) Total Bilirubin 1.1 mg/dL (0.2-1.2) Aspartate Amino Transf (AST/SGOT) 10 IU/L (5-34) Alanine Aminotransferase (ALT/SGPT) < 6 IU/L (0-55) Alkaline Phosphatase 71 IU/L (40-150) Creatine Kinase 51 IU/L (30-200) Creatine Kinase MB 0.90 ng/mL (0-5.0) Troponin I 0.014 ng/mL (0-0.300) Total Protein 7.9 g/dL (6.5-8.1) Albumin 3.8 g/dL (3.5-5.0) Globulin 4.1 g/dL (2.3-3.5) Albumin/Globulin Ratio 0.9 (0.8-2.0) Influenza Virus Types A,B Antigen Positive flu a (NEGATIVE) Laboratory Tests Test 12/22/19 20:21 12/22/19 20:03 White Blood Count 9.15 x10e3/uL (4.8-10.8) Red Blood Count 4.10 x10e6/uL (4.3-5.7) Hemoglobin 13.9 g/dL (14.0-18.0) Hematocrit 39.3 % (38.2-49.6) Mean Corpuscular Volume 95.9 fL (81-99) Mean Corpuscular Hemoglobin 33.9 pg (28-32) Mean Corpuscular Hemoglobin Concent 35.4 g/dL (31-35) Red Cell Distribution Width 12.7 % (11.7-14.4) Platelet Count 171 x10e3/uL (140-360) Neutrophils (%) (Auto) 83.6 % (38.7-80.0) Lymphocytes (%) (Auto) 9.7 % (18.0-39.1) Monocytes (%) (Auto) 5.7 % (4.4-11.3) Eosinophils (%) (Auto) 0.4 % (0.0-6.0) Basophils (%) (Auto) 0.1 % (0.0-1.0) Neutrophils # (Auto) 7.6 (2.1-6.9) Lymphocytes # (Auto) 0.9 (1.0-3.2) Monocytes # (Auto) 0.5 (0.2-0.8) Eosinophils # (Auto) 0.0 (0.0-0.4) Basophils # (Auto) 0.0 (0.0-0.1) Absolute Immature Granulocyte (auto 0.05 x10e3/uL (0-0.1) Lab results reviewed: Yes Imaging Imaging results reviewed: Yes Procedures 12 Lead ECG Interpretation ECG Interpretation : ECG: ECG 1 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: Interpreted by ED physician Date: Dec 22, 2019 Time: 19:55 Rhythm: sinus rhythm Rate: normal BPM: 82 Conduction: right bundle branch block ST segments normal: No (NONSPECIFIC CHANGES SECONDARY TO RBBB) T waves normal: No (NON SPECIFIC CHANGES SECONDARY TO RBBB) Clinical Impression: abnormal ECG Assessment & Plan Medical Decision Making MDM PT WITH CHEST TIGHTNESS AND HICCUPS SINCE THIS MORNING, PT IS UNDER A LOT OF STRESS, NOTED TO HAVE TEMP OF 100.5 CBC, CMP, LACTIC ACID, UA, CXR, EKG, CARDIAC ENZYMES, ORDERED TO EVAL FOR PNEUMONIA, UTI, SEPSIS, MYOCARDIAL INFARCTION, ELECTROLYTE ABNORMALITY Assessment & Plan Final Impression: (1) Fever (2) Influenza A Depart Disposition: HOME, SELF-CARE Last Vital Signs Date Time Temp Pulse Resp B/P (MAP) Pulse Ox O2 Delivery O2 Flow Rate FiO2 12/22/19 19:50 100.5 84 16 154/72 99 Room Air Home Meds Reported Medications [Medrol] No Conflict Check, PO BID 05/19/18 Benzonatate (TESSALON PERLE) 100 Mg Capsule, 100 MG PO Q6H PRN for COUGH 05/19/18 Fluticasone Propionate (FLUTICASONE PROPIONATE) 16 Gm [place].susp, 1 SPRAY NA BID 05/19/18 Loratadine (LORATADINE) 10 Mg Tablet, 10 MG PO DAILY, #30 TAB 05/19/18 Aspirin (ASPIR 81) 81 Mg Tablet.dr, 81 MG PO DAILY 05/18/18 Isosorbide Mononitrate (ISOSORBIDE MONONITRATE ER) 30 Mg Tab.er.24h, 30 MG PO DAILY 05/18/18 Montelukast Sodium (MONTELUKAST SODIUM) 10 Mg Tablet, 10 MG PO DAILY 05/18/18 Rosuvastatin Calcium (CRESTOR) 5 Mg Tablet, 5 MG PO DAILY 05/18/18 Atenolol (ATENOLOL) 25 Mg Tablet, 25 MG PO DAILY 05/18/18 Amlodipine Besylate (AMLODIPINE BESYLATE) 5 Mg Tablet, 5 MG PO DAILY, #30 TAB 05/16/15 Clopidogrel Bisulfate (CLOPIDOGREL) 75 Mg Tablet, 75 MG PO DAILY, #30 TAB 05/16/15 RADHA JACKSON MD Dec 22, 2019 20:38
[2019-12-22] MEDS ORDERED: ACETAMINOPHEN 325 MG TAB PO ONE ×2 (20:45)
[2019-12-22 20:47] LABS: ALANINE AMINOTRANSFERASE < 6 IU/L (0-55)
[2019-12-22 21:08] LABS: CLARITY,URINE CLEAR (CLEAR); COLOR,URINE YELLOW (YELLOW); LEUKOCYTE ESTERASE ,URINE NEGATIVE (NEGATIVE); NITRITE,URINE NEGATIVE (NEGATIVE); PROTEIN,URINE DIPSTICK NEGATIVE (NEGATIVE)
[2019-12-22 21:09] LABS: BILIRUBIN,URINE NEGATIVE (NEGATIVE); KETONES,URINE NEGATIVE (NEGATIVE); URINE UROBILINOGEN 1 mg/dL (0.2 - 1)
[2019-12-22 21:25] LABS: WBC,URINE (MAN) 0-5 /HPF (0-5)
[2019-12-22 21:26] LABS: BACTERIA,URINE FEW /HPF; EPITHELIAL CELLS,URINE FEW /LPF; RBC,URINE 0-5 /HPF (0-5)
--- OUTSIDE RECORDS SUMMARY | 2019-12-22 21:29 | XMS REPORT | Continuity of Care Document ---
Author Author [facility] Organization [facility] Address [address] [place] [address] Phone Unavailable Care Team Providers Care Development Rep Name Role Phone Cristela MARTINES MD PCP MARCIANO CHAVARRIA Attphys Unavailable JAVIER, [place] Attphys Unavailable JAVIER, [place] Admphys Unavailable Payers Payer Name Policy Type Policy Number Effective Date Expiration Date Cristela Lee [id number] 2015 00:00:00 [facility] Problems Condition Name Condition Details Condition Category Status Onset Date Resolution Date Last Treatment Date Treating Clinician Comments Source Chest pain Chest pain Problem Active 2015-05-16 00:00:00 [facility] Allergies, Adverse Reactions, Alerts Allergy Name Allergy Type Status Severity Reaction(s) Onset Date Inacti ve Date Treating Clinician Comments Source Penicillins DA Active SV 2018-05-21 00:00:00 [facility] Atorvastatin Allergy to Substance Active 2018-05-17 00:00:0 0 [facility] penicillin Allergy to Substance Active Mild RASH/ FEVER 2015-05-16 0 0:00:00 [facility] Penicillins DA Active U 2008-11-03 00:00:00 [facility] Medications Ordered Medication Name Filled Medication Name Start Date Stop Da te Current Medication? Ordering Clinician Indication Dosage Frequency Signature (SIG) Comments Components Source Amlodipine Besylate 5 Mg Tablet Amlodipine Besylate 5 Mg Tablet Yes 5 Daily [facility] Aspirin (Aspir 81) 81 Mg Tablet. Aspirin (Aspir 81) 81 Mg Tablet. Yes 81 Daily [facility] Atenolol 25 Mg Tablet Atenolol 25 Mg Tablet Yes 25 Daily [facility] Benzonatate (Tessalon Perle) 100 Mg Capsule Benzonatat e (Tessalon Perle) 100 Mg Capsule Yes 100 Every 6 Hours as needed for Co ugh [facility] Clopidogrel Bisulfate (Clopidogrel) 75 Mg Tablet Clopi dogrel Bisulfate (Clopidogrel) 75 Mg Tablet Yes 75 Daily [facility] Fluticasone Propionate 16 Gm Bradley.susp Fluticasone Propiona te 16 Gm Bradley.susp Yes 1 Twice A Day [facility] Isosorbide Mononitrate (Isosorbide Mononitrate Er) 30 Mg Tab.er.24h Isosorbide Mononitrate (Isosorbide Mononitrate Er) 30 Mg Tab.er.24h Yes 30 Daily [facility] Lor[facility]ine 10 Mg Tablet Loratadine 10 Mg Tablet Yes 10 Daily [facility] Medrol Medrol Yes Twice A Day [facility] Montelukast Sodium 10 Mg Tablet Montelukast Sodium 10 Mg Tablet Yes 10 Daily [facility] Rosuvastatin Calcium (Crestor) 5 Mg Tablet Rosuvastati n Calcium (Crestor) 5 Mg Tablet Yes 5 Daily [facility] Procedures This patient has no known procedures. Encounters Start Date/Time End Date/Time Encounter Type Admission Type [facility] Facility Care Department Encounter ID Source 2019-02-22 10:57:00 2019-03-08 23:59:00 Discharged Recurring [facility] [id number] [facility] 2019-02-08 10:33:00 2019-02-08 10:33:00 Registered Clinic 3 MARCIANO CHAVARRIA [facility] [id number] [facility] 2019-01-18 11:04:00 2019-02-05 23:59:00 Discharged Recurring [facility] [id number] [facility] 2018-12-13 11:12:00 2019-01-05 23:59:00 Discharged Recurring [facility] [id number] [facility] 2018-11-07 10:05:00 2018-12-06 23:59:00 Discharged Recurring [facility] [id number] [facility] 2018-10-11 10:15:00 2018-11-05 23:59:00 Discharged Recurring [facility] [id number] [facility] 2018-05-21 16:04:00 2018-05-21 16:26:00 Departed Emergency Room [facility] [id number] [facility] 2018-05-18 01:34:00 2018-05-19 16:01:00 Discharged Inpatient (obs) 1 [place] JAVIER [facility] [id number] [facility] Results Test Description Test Time Test Comments Results Result Comments Source MODIFIED BA. SWALLOW 2019-02-08 12:43:00 [facility] [address] [place] [address] Patient Name: FRED CARTER JR MR #: [id number] : 1940 Age/Sex: 78/M Req #: [id number] Adm Physician: Ordered by: MARCIANO CHAVARRIA MD Report #: [id number] Location: DX Room/Bed: Procedure: [id number] DX/MODIFIED BA. SWALLOW Exam Date: 02/08/19 Exam Time: 1103 REPORT STATUS: Signed PROCEDURE: X-RAY MODIFIED BARIUM SWALLOW COMPARISON: None. INDICATION: Aspiration Radiation Details: Fluoroscopy time: 1.3 minutes Cumulative dose: 4.8 mGy DISCUSSION: Fluoroscopic examination was performed in conjunction with speech pathology during swallowing a variety of thin and thick liquid consistencies. Provided images demonstrate no laryngeal penetration or aspiration. CONCLUSION: Modified barium swallow demonstrating no laryngeal penetration or aspiration. Please refer to the speech pathology report for further details. Signed by: Danielle Wick MD on 02/08/2019 12:43 PM Dictated By: DANIELLE WICK MD 1243 Transcribed By: ELINA on 02/08/19 1243 COPY TO: MARCIANO CHAVARRIA MD GLUBED 2018-06-12 12:52:00 Test Item GLUBED (test code = GLUBED) 134 mg/dL 74-106 H Performed by certified white sugar pan tank operator at [facility] [id number] 12:52:00* Test Item Value Reference Range Interpretation Comments GLUBED (test code = GLUBED) 135 mg/dL 74-106 H Performed by certified white sugar pan tank operator at [facility] [id number] 12:52:00* Test Item Value Reference Range Interpretation Comments GLUBED (test code = GLUBED) 153 mg/dL 74-106 H Performed by certified white sugar pan tank operator at [facility] [id number] 12:52:00* Test Item Value Reference Range Interpretation Comments GLUBED (test code = GLUBED) 112 mg/dL 74-106 H Performed by certified white sugar pan tank operator at [facility] [id number] 12:32:00* Test Item Value Reference Range Interpretation Comments GLUBED (test code = GLUBED) 144 mg/dL 74-106 H Performed by certified white sugar pan tank operator at [facility] [id number] 17:02:00* Test Item Value Reference Range Interpretation Comments GLUBED (test code = GLUBED) 133 mg/dL 74-106 H Performed by certified white sugar pan tank operator at [facility] CBC W/AUTO [id number] 08:09:00* Test Item Value Reference Range Interpretation Comments WHITE BLOOD CELL (test code = WBC) 7.9 K/mm3 4.5-12.5 N RED BLOOD CELL (test code = RBC) 3.90 mill/mm3 4.0-5.8 L HEMOGLOBIN (test code = HGB) 12.9 gram/dL 13.0-17.5 L HEMATOCRIT (test code = HCT) 42.4 % 42.0-52.0 N MEAN CELL VOLUME (test code = MCV) 108.7 fL 80-98 H RESULT VERIFIED BY REPEAT ANALYSIS MEAN CELL HGB (test code = MCH) 33.1 picogram 27.0-33.0 H MEAN CELL HGB CONCETRATION (test code = MCHC) 30.4 gram/dL 33.0-36. 0 L RED CELL DISTRIBUTION WIDTH (test code = RDW) 13.3 % 11.6-16. 2 N RED CELL DISTRIBUTION WIDTH SD (test code = RDW-SD) 53.4 fL 37 .0-51.0 H PLATELET COUNT (test code = PLT) 179 K/mm3 150-450 N MEAN PLATELET VOLUME (test code = MPV) 9.5 fL 6.7-11.0 N NEUTROPHIL % (test code = NT%) 65.9 % 39.0-69.0 N IMMATURE GRANULOCYTE % (test code = IG%) 0.4 % 0.0-5.0 N LYMPHOCYTE % (test code = LY%) 23.4 % 25.0-55.0 L MONOCYTE % (test code = MO%) 7.0 % 0.0-10.0 N EOSINOPHIL % (test code = EO%) 2.7 % 0.0-5.0 N BASOPHIL % (test code = BA%) 0.6 % 0.0-1.0 N NUCLEATED RBC % (test code = NRBC%) 0.0 % 0-0 N NEUTROPHIL # (test code = NT#) 5.20 K/mm3 1.8-7.7 N IMMATURE GRANULOCYTE # (test code = IG#) 0.03 x10 3/uL 0-0.03 N LYMPHOCYTE # (test code = LY#) 1.85 K/mm3 1.0-5.0 N MONOCYTE # (test code = MO#) 0.55 K/mm3 0-0.8 N EOSINOPHIL # (test code = EO#) 0.21 K/mm3 0.0-0.5 N BASOPHIL # (test code = BA#) 0.05 K/mm3 0.0-0.2 N NUCLEATED RBC # (test code = NRBC#) 0.00 K/mm3 0.0-0.1 N MANUAL DIFF REQUIRED (test code = MDIFF) NO [id number] 07:10:00* Test Item Value Reference Range Interpretation Comments TROPONIN-I (test code = TROPI) 8.930 ng/mL 0-0.045 HH Results called to PREVIOUS [facility] V.LAB.P 05/23/18 0709 COMPREHENSIVE METABOLIC [id number] 07:05:00* Test Item Value Reference Range Interpretation Comments SODIUM (test code = NA) 136 mmol/L 136-145 N POTASSIUM (test code = K) 3.7 mmol/L 3.5-5.1 N CHLORIDE (test code = CL) 106.0 mmol/L 98-107 N CARBON DIOXIDE (test code = CO2) 23.0 mmol/L 21-32 N ANION GAP (test code = GAP) 10.7 10-20 N GLUCOSE (test code = GLU) 117 mg/dL 74-106 H BLOOD UREA NITROGEN (test code = BUN) 13 mg/dL 7-18 N GLOMERULAR FILTRATION RATE (test code = GFR) > 60 mL/min >=60 Estimated GFR by using Modified MDRD formula.Chronic kidney disease is defined as either kidney damageor GFR <60 mL/min/1.73 m2 for >3 months. CREATININE (test code = CREAT) 0.90 mg/dL 0.7-1.3 N BUN/CREATININE RATIO (test code = BUN/CREA) 14.4 10-20 N TOTAL PROTEIN (test code = PROT) 7.2 gram/dL 6.4-8.2 N ALBUMIN (test code = ALB) 3.1 g/dL 3.4-5.0 L GLOBULIN (test code = GLOB) 4.1 gram/dL 2.7-4.2 N ALBUMIN/GLOBULIN RATIO (test code = A/G) 0.8 0.75-1.50 N CALCIUM (test code = CA) 8.4 mg/dL 8.5-10.1 L BILIRUBIN TOTAL (test code = BILT) 1.60 mg/dL 0.0-1.0 H SGOT/AST (test code = AST) 34 IUnit/L 15-37 N SGPT/ALT (test code = ALT) 22 IUnit/L 12-78 N ALKALINE PHOSPHATASE TOTAL (test code = ALKP) 58 IUnit/L 45-117 N Note change in reference range due to change in reagent. [id number] 07:05:00* Test Item Value Reference Range Interpretation Comments MAGNESIUM (test code = MAG) 2.0 mg/dL 1.8-2.4 N COMPREHENSIVE METABOLIC [id number] 06:50:00* Test Item Value Reference Range Interpretation Comments SODIUM (test code = NA) 136 mmol/L 136-145 N POTASSIUM (test code = K) 3.7 mmol/L 3.5-5.1 N CHLORIDE (test code = CL) 106.0 mmol/L 98-107 N CARBON DIOXIDE (test code = CO2) mmol/L 21-32 ANION GAP (test code = GAP) 10-20 GLUCOSE (test code = GLU) mg/dL 74-106 BLOOD UREA NITROGEN (test code = BUN) mg/dL 7-18 GLOMERULAR FILTRATION RATE (test code = GFR) mL/min >=60 CREATININE (test code = CREAT) mg/dL 0.7-1.3 BUN/CREATININE RATIO (test code = BUN/CREA) 10-20 TOTAL PROTEIN (test code = PROT) gram/dL 6.4-8.2 ALBUMIN (test code = ALB) g/dL 3.4-5.0 GLOBULIN (test code = GLOB) gram/dL 2.7-4.2 ALBUMIN/GLOBULIN RATIO (test code = A/G) 0.75-1.50 CALCIUM (test code = CA) mg/dL 8.5-10.1 BILIRUBIN TOTAL (test code = BILT) mg/dL 0.0-1.0 SGOT/AST (test code = AST) IUnit/L 15-37 SGPT/ALT (test code = ALT) IUnit/L 12-78 ALKALINE PHOSPHATASE TOTAL (test code = ALKP) IUnit/L 45-117 [id number] 06:50:00* Test Item Value Reference Range Interpretation Comments MAGNESIUM (test code = MAG) mg/dL 1.8-2.4 [id number] 15:21:00* Test Item Value Reference Range Interpretation Comments TROPONIN-I (test code = TROPI) 9.210 ng/mL 0-0.045 HH LIPID PROFILE (CORONARY RISK)2018-05-22 11:49:00* Test Item Value Reference Range Interpretation Comments TRIGLYCERIDES (test code = TRIG) 77 mg/dL 20-150 N CHOLESTEROL (test code = CHOL) 113 mg/dL 0-200 N CHOLESTEROL/HDL RATIO (test code = CHOLHDL) 2.0 RATIO 0-4.9 N RISK ASSOCIATED WITH CHOL/HDL RATIOS: Risk Male Female1/2 AVERAGE 3.43 3.27AVERAGE 4.97 4.442X AVERAGE 9.55 7.053X AVERAGE 23.39 11.04 REFERENCE VALUE IS RELATED TO RISK LEVELS ASRECOMMENDED BY THE HYUN. HEART, LUNG, AND BLOOD INST. HDL CHOLESTEROL (test code = HDL) 43 mg/dL 40-60 N LIPOPROTEIN LDL (test code = LDL) 62 mg/dL 100-129 L Reference Interval: mg/dL mmol/L Optimal <100 <2.6Near/above optimal 100-129 2.6- 3.3Borderline High 130-159 3.4-4.1High 160-189 4.1-4.9Very High >=190 >=4.9========= This LDL result is a direct measurement.========= SPECIMEN COMMENTS: If not doneBASIC METABOLIC [id number] 08:04:00* Test Item Value Reference Range Interpretation Comments SODIUM (test code = NA) 137 mmol/L 136-145 N POTASSIUM (test code = K) 3.6 mmol/L 3.5-5.1 N CHLORIDE (test code = CL) 103.0 mmol/L 98-107 N CARBON DIOXIDE (test code = CO2) 26.0 mmol/L 21-32 N ANION GAP (test code = GAP) 11.6 10-20 N GLUCOSE (test code = GLU) 113 mg/dL 74-106 H BLOOD UREA NITROGEN (test code = BUN) 10 mg/dL 7-18 N GLOMERULAR FILTRATION RATE (test code = GFR) > 60 mL/min >=60 Estimated GFR by using Modified MDRD formula.Chronic kidney disease is defined as either kidney damageor GFR <60 mL/min/1.73 m2 for >3 months. CREATININE (test code = CREAT) 0.80 mg/dL 0.7-1.3 N BUN/CREATININE RATIO (test code = BUN/CREA) 12.5 10-20 N CALCIUM (test code = CA) 8.9 mg/dL 8.5-10.1 N PROTHROMBIN [id number] 08:00:00* Test Item Value Reference Range Interpretation Comments PROTHROMBIN TIME PATIENT (test code = PTP) 13.1 seconds 9.0-14.0 N INTERNATIONAL NORMAL RATIO (test code = INR) 1.1 0.8-1.2 N The therapeutic range for oral anticoagulant therapy formost indications is an international normalized ratio (INR)of between 2.0 and 3.0. The recommended therapeutic INRrange for various clinical situations is listed below: Clinical Situation INR range Pulmonary e mbolism treatment (2.0-3.0)Venous thrombosis treatmentVenous thrombosis prophylaxis (high risk surgery)Prevention of systemic embolism from: Acute myocardial infarction Valvular heart disease Atrial fibrillation Mechanical prosthetic heart valves (2.5-3.5) IS PATIENT ON ANTICOAGULANTS? YLIST ANTICOAGULANTS ASPIRINTHROMBOPLASTIN TIME [id number] 08:00:00* Test Item Value Reference Range Interpretation Comments THROMBOPLASTIN TIME PARTIAL (test code = PTT) 64.4 seconds 25.0-36. 5 H IS PATIENT ON ANTICOAGULANTS? YLIST ANTICOAGULANTS ASPIRINBASIC METABOLIC [id number] 07:54:00* Test Item Value Reference Range Interpretation Comments SODIUM (test code = NA) 137 mmol/L 136-145 N POTASSIUM (test code = K) 3.6 mmol/L 3.5-5.1 N CHLORIDE (test code = CL) 103.0 mmol/L 98-107 N CARBON DIOXIDE (test code = CO2) mmol/L 21-32 ANION GAP (test code = GAP) 10-20 GLUCOSE (test code = GLU) mg/dL 74-106 BLOOD UREA NITROGEN (test code = BUN) mg/dL 7-18 GLOMERULAR FILTRATION RATE (test code = GFR) mL/min >=60 CREATININE (test code = CREAT) mg/dL 0.7-1.3 BUN/CREATININE RATIO (test code = BUN/CREA) 10-20 CALCIUM (test code = CA) mg/dL 8.5-10.1 CBC W/AUTO [id number] 07:49:00* Test Item Value Reference Range Interpretation Comments WHITE BLOOD CELL (test code = WBC) 7.5 K/mm3 4.5-12.5 N RED BLOOD CELL (test code = RBC) 4.24 mill/mm3 4.0-5.8 N HEMOGLOBIN (test code = HGB) 14.7 gram/dL 13.0-17.5 N HEMATOCRIT (test code = HCT) 41.2 % 42.0-52.0 L MEAN CELL VOLUME (test code = MCV) 97.2 fL 80-98 N MEAN CELL HGB (test code = MCH) 34.7 picogram 27.0-33.0 H MEAN CELL HGB CONCETRATION (test code = MCHC) 35.7 gram/dL 33.0-36. 0 N RED CELL DISTRIBUTION WIDTH (test code = RDW) 12.9 % 11.6-16. 2 N RED CELL DISTRIBUTION WIDTH SD (test code = RDW-SD) 45.9 fL 37 .0-51.0 N PLATELET COUNT (test code = PLT) 188 K/mm3 150-450 N MEAN PLATELET VOLUME (test code = MPV) 9.5 fL 6.7-11.0 N NEUTROPHIL % (test code = NT%) 67.8 % 39.0-69.0 N IMMATURE GRANULOCYTE % (test code = IG%) 0.3 % 0.0-5.0 N LYMPHOCYTE % (test code = LY%) 22.7 % 25.0-55.0 L MONOCYTE % (test code = MO%) 7.2 % 0.0-10.0 N EOSINOPHIL % (test code = EO%) 1.5 % 0.0-5.0 N BASOPHIL % (test code = BA%) 0.5 % 0.0-1.0 N NUCLEATED RBC % (test code = NRBC%) 0.0 % 0-0 N NEUTROPHIL # (test code = NT#) 5.06 K/mm3 1.8-7.7 N IMMATURE GRANULOCYTE # (test code = IG#) 0.02 x10 3/uL 0-0.03 N LYMPHOCYTE # (test code = LY#) 1.69 K/mm3 1.0-5.0 N MONOCYTE # (test code = MO#) 0.54 K/mm3 0-0.8 N EOSINOPHIL # (test code = EO#) 0.11 K/mm3 0.0-0.5 N BASOPHIL # (test code = BA#) 0.04 K/mm3 0.0-0.2 N NUCLEATED RBC # (test code = NRBC#) 0.00 K/mm3 0.0-0.1 N MANUAL DIFF REQUIRED (test code = MDIFF) NO [id number] 02:37:00* Test Item Value Reference Range Interpretation Comments TROPONIN-I (test code = TROPI) 4.380 ng/mL 0-0.045 Results called to [id number] by [email or web address] 05/22/18 0237Critical results verified and read back by Nurse? Y COMMENTS TO RETAIL MARKETING MANAGER: COLLECT 3 HOURS AFTER PREVIOUS [id number] 00:16:00* Test Item Value Reference Range Interpretation Comments TROPONIN-I (test code = TROPI) 2.820 ng/mL 0-0.045 COMMENTS TO RETAIL MARKETING MANAGER: COLLECT 3 HOURS AFTER PREVIOUS [id number] 21:32:00* Test Item Value Reference Range Interpretation Comments GLUBED (test code = GLUBED) 132 mg/dL 74-106 H Performed by certified white sugar pan tank operator at [facility] B-TYPE NATRIURETIC [id number] 15:15:00* Test Item Value Reference Range Interpretation Comments B-TYPE NATRIURETIC PEPTIDE (test code = BNP) 310.10 pgram/mL 0-100 H BASIC METABOLIC [id number] 15:13:00* Test Item Value Reference Range Interpretation Comments SODIUM (test code = NA) 136 mmol/L 136-145 N POTASSIUM (test code = K) 3.6 mmol/L 3.5-5.1 N CHLORIDE (test code = CL) 104.0 mmol/L 98-107 N CARBON DIOXIDE (test code = CO2) 26.0 mmol/L 21-32 N ANION GAP (test code = GAP) 9.6 10-20 L GLUCOSE (test code = GLU) 127 mg/dL 74-106 H BLOOD UREA NITROGEN (test code = BUN) 10 mg/dL 7-18 N GLOMERULAR FILTRATION RATE (test code = GFR) > 60 mL/min >=60 Estimated GFR by using Modified MDRD formula.Chronic kidney disease is defined as either kidney damageor GFR <60 mL/min/1.73 m2 for >3 months. CREATININE (test code = CREAT) 0.80 mg/dL 0.7-1.3 N BUN/CREATININE RATIO (test code = BUN/CREA) 12.5 10-20 N CALCIUM (test code = CA) 8.5 mg/dL 8.5-10.1 N HEPATIC FUNCTION [id number] 15:13:00* Test Item Value Reference Range Interpretation Comments TOTAL PROTEIN (test code = PROT) 8.2 gram/dL 6.4-8.2 N ALBUMIN (test code = ALB) 3.8 g/dL 3.4-5.0 N GLOBULIN (test code = GLOB) 4.4 gram/dL 2.7-4.2 H ALBUMIN/GLOBULIN RATIO (test code = A/G) 0.9 0.75-1.50 N BILIRUBIN TOTAL (test code = BILT) 1.10 mg/dL 0.0-1.0 H BILIRUBIN DIRECT (test code = BILD) 0.29 mg/dL 0.0-0.20 H SGOT/AST (test code = AST) 17 IUnit/L 15-37 N SGPT/ALT (test code = ALT) 19 IUnit/L 12-78 N ALKALINE PHOSPHATASE TOTAL (test code = ALKP) 64 IUnit/L 45-117 N Note change in reference range due to change in reagent. [id number] 15:13:00* Test Item Value Reference Range Interpretation Comments LIPASE (test code = LIP) 108 U/L 73.0-393.0 N [id number] 15:13:00* Test Item Value Reference Range Interpretation Comments MAGNESIUM (test code = MAG) 2.0 mg/dL 1.8-2.4 N [id number] 15:13:00* Test Item Value Reference Range Interpretation Comments TROPONIN-I (test code = TROPI) 1.150 ng/mL 0-0.045 Results called to [id number] by V.LAB.[facility] 05/21/18 1511Critical results verified and read back by Nurse? Y BASIC METABOLIC [id number] 14:58:00* Test Item Value Reference Range Interpretation Comments SODIUM (test code = NA) 136 mmol/L 136-145 N POTASSIUM (test code = K) 3.6 mmol/L 3.5-5.1 N CHLORIDE (test code = CL) 104.0 mmol/L 98-107 N CARBON DIOXIDE (test code = CO2) mmol/L 21-32 ANION GAP (test code = GAP) 10-20 GLUCOSE (test code = GLU) mg/dL 74-106 BLOOD UREA NITROGEN (test code = BUN) mg/dL 7-18 GLOMERULAR FILTRATION RATE (test code = GFR) mL/min >=60 CREATININE (test code = CREAT) mg/dL 0.7-1.3 BUN/CREATININE RATIO (test code = BUN/CREA) 10-20 CALCIUM (test code = CA) mg/dL 8.5-10.1 HEPATIC FUNCTION [id number] 14:58:00* Test Item Value Reference Range Interpretation Comments TOTAL PROTEIN (test code = PROT) gram/dL 6.4-8.2 ALBUMIN (test code = ALB) g/dL 3.4-5.0 GLOBULIN (test code = GLOB) gram/dL 2.7-4.2 ALBUMIN/GLOBULIN RATIO (test code = A/G) 0.75-1.50 BILIRUBIN TOTAL (test code = BILT) mg/dL 0.0-1.0 BILIRUBIN DIRECT (test code = BILD) mg/dL 0.0-0.20 SGOT/AST (test code = AST) IUnit/L 15-37 SGPT/ALT (test code = ALT) IUnit/L 12-78 ALKALINE PHOSPHATASE TOTAL (test code = ALKP) IUnit/L 45-117 [id number] 14:58:00* Test Item Value Reference Range Interpretation Comments LIPASE (test code = LIP) U/L 73.0-393.0 [id number] 14:58:00* Test Item Value Reference Range Interpretation Comments MAGNESIUM (test code = MAG) mg/dL 1.8-2.4 [id number] 14:58:00* Test Item Value Reference Range Interpretation Comments TROPONIN-I (test code = TROPI) ng/mL 0-0.045 - XR CHEST 1 [id number] 14:56:00 FAX: Yissel Calvo MD [phone] [place]: St: REG Name: FRED HANKINS [facility] : [birth year] 45 Age/S: 77/M [address] [facility] Unit #: [id number] Loc: [place] [address] Phys: Yissel Calvo MD Acct: [id number] Dis Date: Status: REG ER PHONE #: [phone] Exam Date: 05/21/2018 1441 FAX #: [phone] Reason: CHEST PAIN EXAMS: CPT CODE: [id number] XR CHEST 1 V [id number] REASON FOR EXAM: CHEST PAIN EXAM ORDER DATE: 05/21/2018 2:14 PM Ordering Ofelia: Yissel Calvo MD PROCEDURE: - XR CHEST 1 V COM PARISON: FINDINGS: Portable AP frontal view of the chest obtained at 2:41 PM shows clear lungs without evidence of consolidation. There is no evidence of effusion. The heart size is within normal limits. Pul monary vasculatures are unremarkable. IMPRESSION: No active dis ease. at [id number] Reported and signed by: Russ Adams M.D. CC: Yissel Calvo MD Technologist: Marlene DUNCAN(R); STUDENT TECHNOLOGIST Trnscrd Date/Time/By: 05/21/2018 (3759) : By: Frank Orig Print D/T: S: 05/21/2018 (3916) PAGE 1 Signed Report PROTHROMBIN [id number] 14:51:00* Test Item Value Reference Range Interpretation Comments PROTHROMBIN TIME PATIENT (test code = PTP) 12.6 seconds 9.0-14.0 N INTERNATIONAL NORMAL RATIO (test code = INR) 1.1 0.8-1.2 N The therapeutic range for oral anticoagulant therapy formost indications is an international normalized ratio (INR)of between 2.0 and 3.0. The recommended therapeutic INRrange for various clinical situations is listed below: Clinical Situation INR range Pulmonary e mbolism treatment (2.0-3.0)Venous thrombosis treatmentVenous thrombosis prophylaxis (high risk surgery)Prevention of systemic embolism from: Acute myocardial infarction Valvular heart disease Atrial fibrillation Mechanical prosthetic heart valves (2.5-3.5) IS PATIENT ON ANTICOAGULANTS? NTHROMBOPLASTIN TIME [id number] 14:51:00* Test Item Value Reference Range Interpretation Comments THROMBOPLASTIN TIME PARTIAL (test code = PTT) 66.6 seconds 25.0-36. 5 H IS PATIENT ON ANTICOAGULANTS? NCBC W/O [id number] 14:35:00* Test Item Value Reference Range Interpretation Comments WHITE BLOOD CELL (test code = WBC) 5.0 K/mm3 4.5-12.5 N RED BLOOD CELL (test code = RBC) 4.29 mill/mm3 4.0-5.8 N HEMOGLOBIN (test code = HGB) 14.4 gram/dL 13.0-17.5 N HEMATOCRIT (test code = HCT) 42.7 % 42.0-52.0 N MEAN CELL VOLUME (test code = MCV) 99.5 fL 80-98 H MEAN CELL HGB (test code = MCH) 33.6 picogram 27.0-33.0 H MEAN CELL HGB CONCETRATION (test code = MCHC) 33.7 gram/dL 33.0-36. 0 N RED CELL DISTRIBUTION WIDTH (test code = RDW) 12.9 % 11.6-16. 2 N PLATELET COUNT (test code = PLT) 175 K/mm3 150-450 N MEAN PLATELET VOLUME (test code = MPV) 9.3 fL 6.7-11.0 N CBC W/O [id number] 14:34:00* Test Item Value Reference Range Interpretation Comments WHITE BLOOD CELL (test code = WBC) K/mm3 4.5-12.5 RED BLOOD CELL (test code = RBC) mill/mm3 4.0-5.8 HEMOGLOBIN (test code = HGB) 14.4 gram/dL 13.0-17.5 N HEMATOCRIT (test code = HCT) 42.7 % 42.0-52.0 N MEAN CELL VOLUME (test code = MCV) fL 80-98 MEAN CELL HGB (test code = MCH) picogram 27.0-33.0 MEAN CELL HGB CONCETRATION (test code = MCHC) gram/dL 33.0-36. 0 RED CELL DISTRIBUTION WIDTH (test code = RDW) % 11.6-16. 2 PLATELET COUNT (test code = PLT) K/mm3 150-450 MEAN PLATELET VOLUME (test code = MPV) fL 6.7-11.0 Stress Test - Treadmill [id number] 08:58:00 [place] [address] Patient Name : FRED CARTER JR MR #: [id number] : 1940 Age/Sex: 77/M Adm Physician : CLINTON JAVIER MD Admit Date : 05/18/18 Location : [facility] Room/Bed : [place] [address] REPORT: Myoview Stress Test DATE OF STUDY: 05/18/2018 08:29:00 Stress Test - Treadmill ONLY INDICATION: Chest pain. DESCRIPTION OF PROCEDURE: After inf ormed consent, the patient was brought to the stress lab. He was given 11 mCi of technetium-99m Myoview and myocardial perfusion SPECT images obtained in t he horizontal long axis and short axis and vertical long axis views. Subseque ntly, the patient was given 28.1 mCi of technetium-99m Myoview and myocardial perfusion SPECT images obtained in horizontal long and short axis and vertical l jah axis. Gated images were also obtained. The patient tolerated the procedu re without any complication. REPORT: Baseline EKG shows sinus rhythm a t 80 beats per minute, normal axis. Right bundle branch block. ST depression V4 to V6. Parameters: 1. Resting heart rate is 80 beats per minute. 2. Maximum heart rate is 104 beats per minute. 3. Resting blood pressure is 12 6/71 mmHg. 4. Maximum blood pressure 140/77 mmHg. REASON FOR TERMINATION : End point attained. INTERPRETATION: 1. Negative for chest pain. 2 . Negative for arrhythmias. 3. Blood pressure response consistent with Lex[place] n. 4. More prominent ST depression noted during stress compared to baseline. 5. Analysis of SPECT images reveals xrwek-hf-iyexwytj area of decreased radiois otope uptake in the anterior apical and septal davis, which reverses partially in the septal wall. 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 There is a small area of septal ischemia. Hypokinesis of the anteroapical wall is noted. Overall ejection fract ion is 39%. Fran Patiño MD SC/MODL Job #: [id number] Signature Date Dictated By: FRAN PATIÑO MD Transcribed By: MODL on 05/21/18 <Electronically signed by FRAN PATIÑO MD><<Signature on File>>05/22/18 1253 COPY TO: Bedside Xiwgysc6154-45-37 16:04:00* Test Item Value Reference Range Interpretation Comments Bedside Glucose (test code = 44661-7) 124 70-120 H Meter ID: [id number] 2018-05-19 16:04:00* Test Item Value Reference Range Interpretation Comments Bedside Glucose (test code = 02057-6) 124 70-120 H Meter ID: [id number] [facility] Glucose 2018-05-19 16:04:00* Test Item Value Reference Range Interpretation Comments Bedside Glucose (test code = 93101-6) 124 70-120 H Meter ID: [id number] Plains [facility] Glucose 2018-05-19 16:04:00* Test Item Value Reference Range Interpretation Comments Bedside Glucose (test code = 19247-4) 124 70-120 H Meter ID: [id number] [facility] Glucose 2018-05-19 16:04:00* Test Item Value Reference Range Interpretation Comments Bedside Glucose (test code = 98868-6) 124 70-120 H Meter ID: [id number] Plains [facility] Glucose 2018-05-19 16:04:00* Test Item Value Reference Range Interpretation Comments Bedside Glucose (test code = 87282-0) 124 70-120 H Meter ID: [id number] Plains [facility] Hospital Glucose 2018-05-19 12:30:00* Test Item Value Reference Range Interpretation Comments Bedside Glucose (test code = 47454-5) 121 70-120 H Meter ID: [id number]ervilleTriglycerides Level 2018-05-19 06:12:00* Test Item Value Reference Range Interpretation Comments Triglycerides Level (test code = 2571-8) 85 0-149 [facility]Ch[facility] Idbtf8159-34-15 06:12:00* Test Item Value Reference Range Interpretation Comments Cholesterol Level (test code = 2093-3) 90 0-199 Less than 200 mg/dL Low Dglh746 - 239 mg/dL Borderline Atwm165 m g/dl and greater High Risk [facility] [place]ervilleLDL Biayofewktz2801-41-09 06:12:00* Test Item Value Reference Range Interpretation Comments LDL Cholesterol (test code = 2089-1) 38 60-130 L [facility] Zttfufmloyi8235-75-10 06:12:00* Test Item Value Reference Range Interpretation Comments HDL Cholesterol (test code = 2085-9) 35 40-60 L [facility]Cholesterol/HDL Crzhs4793-39-55 06:12:00 * Test Item Value Reference Range Interpretation Comments Cholesterol/HDL Ratio (test code = 9830-1) 2.6 3.9-4.7 L [facility]ervilleTriglycerides Gynfs2217-07-53 06:12:00* Test Item Value Reference Range Interpretation Comments Triglycerides Level (test code = 2571-8) 85 0-149 [facility] Wkghi4467-63-34 06:12:00* Test Item Value Reference Range Interpretation Comments Cholesterol Level (test code = 2093-3) 90 0-199 Less than 200 mg/dL Low Lyve937 - 239 mg/dL Borderline Ngdo000 m g/dl and greater High Risk [facility]LDL Qmbgnrhwthr8151-21-59 06:12:00* Test Item Value Reference Range Interpretation Comments LDL Cholesterol (test code = 2089-1) 38 60-130 L [facility] Pimoolpxnht9917-30-42 06:12:00* Test Item Value Reference Range Interpretation Comments HDL Cholesterol (test code = 2085-9) 35 40-60 L [facility]Cholesterol/HDL Zrssx8551-82-52 06:12:00 * Test Item Value Reference Range Interpretation Comments Cholesterol/HDL Ratio (test code = 9830-1) 2.6 3.9-4.7 L [facility]Triglycerides Mnaqr5993-41-41 06:12:00* Test Item Value Reference Range Interpretation Comments Triglycerides Level (test code = 2571-8) 85 0-149 [facility] Haxur4600-41-71 06:12:00* Test Item Value Reference Range Interpretation Comments Cholesterol Level (test code = 2093-3) 90 0-199 Less than 200 mg/dL Low Soog199 - 239 mg/dL Borderline Ndov157 m g/dl and greater High Risk [facility] [place]LDL Tcpngetgxcn9653-17-70 06:12:00* Test Item Value Reference Range Interpretation Comments LDL Cholesterol (test code = 2089-1) 38 60-130 L [facility]L Aqdiwptlbco4129-44-24 06:12:00* Test Item Value Reference Range Interpretation Comments HDL Cholesterol (test code = 2085-9) 35 40-60 L [facility]Ch[facility]/HDL Bthcc1689-58-52 06:12:00 * Test Item Value Reference Range Interpretation Comments Cholesterol/HDL Ratio (test code = 9830-1) 2.6 3.9-4.7 L [facility]Triglycerides Mzwey1482-24-10 06:12:00* Test Item Value Reference Range Interpretation Comments Triglycerides Level (test code = 2571-8) 85 0-149 [facility] Atkfi6234-29-51 06:12:00* Test Item Value Reference Range Interpretation Comments Cholesterol Level (test code = 2093-3) 90 0-199 Less than 200 mg/dL Low Qtwm226 - 239 mg/dL Borderline Mqik977 m g/dl and greater High Risk [facility] [place]LDL Lhucdwxauas4089-53-25 06:12:00* Test Item Value Reference Range Interpretation Comments LDL Cholesterol (test code = 2089-1) 38 60-130 L [facility]ownL Amijexrdzjw8938-84-75 06:12:00* Test Item Value Reference Range Interpretation Comments HDL Cholesterol (test code = 2085-9) 35 40-60 L [facility]Cholesterol/HDL Evjgk8724-96-19 06:12:00 * Test Item Value Reference Range Interpretation Comments Cholesterol/HDL Ratio (test code = 9830-1) 2.6 3.9-4.7 L [facility]ervilleTriglycerides Odkch4610-33-51 06:12:00* Test Item Value Reference Range Interpretation Comments Triglycerides Level (test code = 2571-8) 85 0-149 [facility]Ch[facility] Jxrgq3179-12-10 06:12:00* Test Item Value Reference Range Interpretation Comments Cholesterol Level (test code = 2093-3) 90 0-199 Less than 200 mg/dL Low Pkuu938 - 239 mg/dL Borderline Kegy447 m g/dl and greater High Risk [facility] [place]LDL Drrxkhncerw8757-69-17 06:12:00* Test Item Value Reference Range Interpretation Comments LDL Cholesterol (test code = 2089-1) 38 60-130 L [facility] Qlmmpvncosy9919-85-96 06:12:00* Test Item Value Reference Range Interpretation Comments HDL Cholesterol (test code = 2085-9) 35 40-60 L [facility]Cholesterol/HDL Mzejz8019-49-48 06:12:00 * Test Item Value Reference Range Interpretation Comments Cholesterol/HDL Ratio (test code = 9830-1) 2.6 3.9-4.7 L [facility]Triglycerides Hujyf9317-76-18 06:12:00* Test Item Value Reference Range Interpretation Comments Triglycerides Level (test code = 2571-8) 85 0-149 [facility]Ch[facility] Vqlcd1065-76-62 06:12:00* Test Item Value Reference Range Interpretation Comments Cholesterol Level (test code = 2093-3) 90 0-199 Less than 200 mg/dL Low Yjyu472 - 239 mg/dL Borderline Nkze712 m g/dl and greater High Risk [facility]LDL Wipgdasfvbq7703-26-46 06:12:00* Test Item Value Reference Range Interpretation Comments LDL Cholesterol (test code = 2089-1) 38 60-130 L [facility] Gfvdnxpblqc2523-97-06 06:12:00* Test Item Value Reference Range Interpretation Comments HDL Cholesterol (test code = 2085-9) 35 40-60 L [facility]Cholesterol/HDL Filfg6394-99-34 06:12:00 * Test Item Value Reference Range Interpretation Comments Cholesterol/HDL Ratio (test code = 9830-1) 2.6 3.9-4.7 L [facility]Triglycerides Oknwt8023-49-22 06:12:00* Test Item Value Reference Range Interpretation Comments Triglycerides Level (test code = 2571-8) 85 0-149 [facility]Cholesterol Ghumb3984-79-03 06:12:00* Test Item Value Reference Range Interpretation Comments Cholesterol Level (test code = 2093-3) 90 0-199 Less than 200 mg/dL Low Vnds480 - 239 mg/dL Borderline Rfkb662 m g/dl and greater High Risk [facility]ervilleLDL Najpknfzbgw2743-56-23 06:12:00* Test Item Value Reference Range Interpretation Comments LDL Cholesterol (test code = 2089-1) 38 60-130 L [facility]ervilleHDL Fufxkvonlyx0298-17-28 06:12:00* Test Item Value Reference Range Interpretation Comments HDL Cholesterol (test code = 2085-9) 35 40-60 L [facility]Cholesterol/HDL Tddin7070-30-41 06:12:00 * Test Item Value Reference Range Interpretation Comments Cholesterol/HDL Ratio (test code = 9830-1) 2.6 3.9-4.7 L [facility] PflugervilleCreatine Kinase TU1789-07-36 17:14:00* Test Item Value Reference Range Interpretation Comments Creatine Kinase MB (test code = 46607-9) 2.90 0-5.0 [facility] PflugervilleTroponin U4509-96-72 17:14:00* Test Item Value Reference Range Interpretation Comments Troponin I (test code = YQA7310) 0.539 0-0.300 H [facility] PflugervilleCreatine Kinase MD7180-69-42 17:14:00* Test Item Value Reference Range Interpretation Comments Creatine Kinase MB (test code = 33610-7) 2.90 0-5.0 [facility] PflugervilleTrformerly [facility]ern E2135-53-81 17:14:00* Test Item Value Reference Range Interpretation Comments Troponin I (test code = PRR8488) 0.539 0-0.300 H [facility] PflugervilleCreatine Kinase TG0463-16-57 17:14:00* Test Item Value Reference Range Interpretation Comments Creatine Kinase MB (test code = 20740-1) 2.90 0-5.0 [place] [address]019-04-12 17:14:00* Test Item Value Reference Range Interpretation Comments Troponin I (test code = ROT9946) 0.539 0-0.300 H [facility] PflugervilleCreatine Kinase VA4461-43-36 17:14:00* Test Item Value Reference Range Interpretation Comments Creatine Kinase MB (test code = 36274-2) 2.90 0-5.0 [place] [address]58019-04-12 17:14:00* Test Item Value Reference Range Interpretation Comments Troponin I (test code = DSC5671) 0.539 0-0.300 H [facility] PflugervilleCreatine Kinase MN6765-21-74 17:14:00* Test Item Value Reference Range Interpretation Comments Creatine Kinase MB (test code = 86391-0) 2.90 0-5.0 [place] 46958019-04-12 17:14:00* Test Item Value Reference Range Interpretation Comments Troponin I (test code = SVN2930) 0.539 0-0.300 H [facility]ugervilleCreatine Kinase AO9444-04-65 17:14:00* Test Item Value Reference Range Interpretation Comments Creatine Kinase MB (test code = 33213-1) 2.90 0-5.0 [place] 469[address]019-04-12 17:14:00* Test Item Value Reference Range Interpretation Comments Troponin I (test code = BBV2475) 0.539 0-0.300 H [facility]ervilleCreatine Kinase LE1006-20-85 17:14:00* Test Item Value Reference Range Interpretation Comments Creatine Kinase MB (test code = 90505-6) 2.90 0-5.0 [facility]ugervilleTroponin E6167-67-69 17:14:00* Test Item Value Reference Range Interpretation Comments Troponin I (test code = TEN8207) 0.539 0-0.300 H [facility]flugervilleCreatine Hnossd3612-36-05 17:07:00* Test Item Value Reference Range Interpretation Comments Creatine Kinase (test code = 2157-6) 95 30-200 [facility]ervilleCreatine Zbwxjg7481-04-58 17:07:00* Test Item Value Reference Range Interpretation Comments Creatine Kinase (test code = 2157-6) 95 30-200 [facility]ervilleCreatine Jwqhli5241-26-45 17:07:00* Test Item Value Reference Range Interpretation Comments Creatine Kinase (test code = 2157-6) 95 30-200 [facility]ervilleCreatine Nuqmkq1822-53-47 17:07:00* Test Item Value Reference Range Interpretation Comments Creatine Kinase (test code = 2157-6) 95 30-200 [facility]ervilleCreatine Fhmbhb1964-58-74 17:07:00* Test Item Value Reference Range Interpretation Comments Creatine Kinase (test code = 2157-6) 95 30-200 [facility]ervilleCreatine Qfndio0222-61-98 17:07:00* Test Item Value Reference Range Interpretation Comments Creatine Kinase (test code = 2157-6) 95 30-200 [facility]ervilleCreatine Hoyfzv5459-61-26 17:07:00* Test Item Value Reference Range Interpretation Comments Creatine Kinase (test code = 2157-6) 95 30-200 [facility]ugervilleUrine VUE0616-71-88 01:44:00* Test Item Value Reference Range Interpretation Comments Urine WBC (test code = 5821-4) 0-5 0-5 [facility]ervilleUrine ZPU4453-80-64 01:44:00* Test Item Value Reference Range Interpretation Comments Urine RBC (test code = 31040-6) 0-5 0-5 [facility]ervilleU[facility] Kpwoimlr4766-75-33 01:44:00* Test Item Value Reference Range Interpretation Comments Urine Bacteria (test code = 54094-8) NONE NONE [facility]ugervilleUrine Epithelial Eouxg6318-36-17 01:44:00 * Test Item Value Reference Range Interpretation Comments Urine Epithelial Cells (test code = 00180-9) FEW NONE [facility]ugervilleUrine FYJ6112-79-20 01:44:00* Test Item Value Reference Range Interpretation Comments Urine WBC (test code = 5821-4) 0-5 0-5 [facility] [id number] 01:44:00* Test Item Value Reference Range Interpretation Comments Urine RBC (test code = 24000-5) 0-5 0-5 [facility] Kagfkfmo8946-86-33 01:44:00* Test Item Value Reference Range Interpretation Comments Urine Bacteria (test code = 44931-4) NONE NONE [facility] Epithelial Uyfzz8048-32-22 01:44:00 * Test Item Value Reference Range Interpretation Comments Urine Epithelial Cells (test code = 15799-5) FEW NONE [facility] WCR8118-42-67 01:44:00* Test Item Value Reference Range Interpretation Comments Urine WBC (test code = 5821-4) 0-5 0-5 [facility] EOH6305-40-74 01:44:00* Test Item Value Reference Range Interpretation Comments Urine RBC (test code = 95078-1) 0-5 0-5 [facility] Yrznmbco5156-30-03 01:44:00* Test Item Value Reference Range Interpretation Comments Urine Bacteria (test code = 88738-5) NONE NONE [facility]ervilleUrine Epithelial Gysum7356-61-35 01:44:00 * Test Item Value Reference Range Interpretation Comments Urine Epithelial Cells (test code = 11515-5) FEW NONE [facility] CXP2558-90-93 01:44:00* Test Item Value Reference Range Interpretation Comments Urine WBC (test code = 5821-4) 0-5 0-5 [facility] GWH1688-18-93 01:44:00* Test Item Value Reference Range Interpretation Comments Urine RBC (test code = 33772-2) 0-5 0-5 [facility] Ccucnjxt3262-83-51 01:44:00* Test Item Value Reference Range Interpretation Comments Urine Bacteria (test code = 80388-4) NONE NONE [facility]ervilleUrine Epithelial Tdcvq0694-61-84 01:44:00 * Test Item Value Reference Range Interpretation Comments Urine Epithelial Cells (test code = 84222-4) FEW NONE [facility] KES5379-35-97 01:44:00* Test Item Value Reference Range Interpretation Comments Urine WBC (test code = 5821-4) 0-5 0-5 [facility] AQG4299-84-40 01:44:00* Test Item Value Reference Range Interpretation Comments Urine RBC (test code = 55810-6) 0-5 0-5 [facility] Llgworjq7320-75-48 01:44:00* Test Item Value Reference Range Interpretation Comments Urine Bacteria (test code = 41492-2) NONE NONE [facility] Epithelial Djcos9141-78-44 01:44:00 * Test Item Value Reference Range Interpretation Comments Urine Epithelial Cells (test code = 71838-5) FEW NONE [facility] KTJ7729-48-24 01:44:00* Test Item Value Reference Range Interpretation Comments Urine WBC (test code = 5821-4) 0-5 0-5 [facility] PSG7208-44-00 01:44:00* Test Item Value Reference Range Interpretation Comments Urine RBC (test code = 60842-0) 0-5 0-5 [facility] Ugzeuqul2764-10-87 01:44:00* Test Item Value Reference Range Interpretation Comments Urine Bacteria (test code = 48316-2) NONE NONE [facility] Epithelial Otgnu5504-90-41 01:44:00 * Test Item Value Reference Range Interpretation Comments Urine Epithelial Cells (test code = 66347-2) FEW NONE [facility] VTX2681-60-55 01:44:00* Test Item Value Reference Range Interpretation Comments Urine WBC (test code = 5821-4) 0-5 0-5 [facility] CWU9094-18-08 01:44:00* Test Item Value Reference Range Interpretation Comments Urine RBC (test code = 78981-8) 0-5 0-5 [facility] Qjolpvfd7735-36-64 01:44:00* Test Item Value Reference Range Interpretation Comments Urine Bacteria (test code = 40366-9) NONE NONE [facility] Epithelial Dpuwn8826-08-68 01:44:00 * Test Item Value Reference Range Interpretation Comments Urine Epithelial Cells (test code = 68822-1) FEW NONE [facility] Hptuk5245-70-41 01:40:00* Test Item Value Reference Range Interpretation Comments Urine Color (test code = 5778-6) YELLOW YELLOW [facility] Kkduenl2103-76-50 01:40:00* Test Item Value Reference Range Interpretation Comments Urine Clarity (test code = 77319-7) CLEAR CLEAR [facility] Specific Avfhnlw1065-32-18 01:40:00 * Test Item Value Reference Range Interpretation Comments Urine Specific [place] (test code = 5811-5) 1.005 1.010-1.02 5 L [facility] bB6176-38-37 01:40:00* Test Item Value Reference Range Interpretation Comments Urine pH (test code = 96647-4) 7 5-7 [facility] Leukocyte Fqbubfde1281-27-12 01:40:00* Test Item Value Reference Range Interpretation Comments Urine Leukocyte Esterase (test code = 5799-2) NEGATIVE NEGATIVE [facility] Uvqizny2777-37-02 01:40:00* Test Item Value Reference Range Interpretation Comments Urine Nitrite (test code = 96433-9) NEGATIVE NEGATIVE [facility] Vhhqbci8722-62-02 01:40:00* Test Item Value Reference Range Interpretation Comments Urine Protein (test code = 5804-0) NEGATIVE NEGATIVE [facility] Glucose (UA)2018-05-18 01:40:00* Test Item Value Reference Range Interpretation Comments Urine Glucose (UA) (test code = 2349-9) NEGATIVE NEGATIVE [facility] Gbnybrc0216-57-99 01:40:00* Test Item Value Reference Range Interpretation Comments Urine Ketones (test code = 56476-0) NEGATIVE NEGATIVE [facility] Jozifycpamrh7121-29-81 01:40:00* Test Item Value Reference Range Interpretation Comments Urine Urobilinogen (test code = 16739-9) 0.2 0.2-1 [facility] Taevxxjrp3139-64-56 01:40:00* Test Item Value Reference Range Interpretation Comments Urine Bilirubin (test code = 1978-6) NEGATIVE NEGATIVE [facility] Vsffm8955-62-13 01:40:00* Test Item Value Reference Range Interpretation Comments Urine Blood (test code = 09173-8) NEGATIVE NEGATIVE [facility] Fssyc4893-02-83 01:40:00* Test Item Value Reference Range Interpretation Comments Urine Color (test code = 5778-6) YELLOW YELLOW [facility] Uhvxqci7872-29-23 01:40:00* Test Item Value Reference Range Interpretation Comments Urine Clarity (test code = 99498-6) CLEAR CLEAR [facility] Specific Zqrpysv9629-43-21 01:40:00 * Test Item Value Reference Range Interpretation Comments Urine Specific [place] (test code = 5811-5) 1.005 1.010-1.02 5 L [facility] mZ5318-95-75 01:40:00* Test Item Value Reference Range Interpretation Comments Urine pH (test code = 66561-7) 7 5-7 [facility] Leukocyte Xcwuwdde5438-58-27 01:40:00* Test Item Value Reference Range Interpretation Comments Urine Leukocyte Esterase (test code = 5799-2) NEGATIVE NEGATIVE [facility] Ytarnyw0779-63-84 01:40:00* Test Item Value Reference Range Interpretation Comments Urine Nitrite (test code = 08808-1) NEGATIVE NEGATIVE [facility] Dkrcsjb7993-36-25 01:40:00* Test Item Value Reference Range Interpretation Comments Urine Protein (test code = 5804-0) NEGATIVE NEGATIVE [facility] Glucose (UA)2018-05-18 01:40:00* Test Item Value Reference Range Interpretation Comments Urine Glucose (UA) (test code = 2349-9) NEGATIVE NEGATIVE [facility] Nasrmwe9424-16-09 01:40:00* Test Item Value Reference Range Interpretation Comments Urine Ketones (test code = 76406-8) NEGATIVE NEGATIVE [facility] Qadetxsnujxg8810-95-61 01:40:00* Test Item Value Reference Range Interpretation Comments Urine Urobilinogen (test code = 21751-1) 0.2 0.2-1 [facility] Neolvlhpn5271-00-10 01:40:00* Test Item Value Reference Range Interpretation Comments Urine Bilirubin (test code = 1978-6) NEGATIVE NEGATIVE [facility] Zgjqn6316-89-14 01:40:00* Test Item Value Reference Range Interpretation Comments Urine Blood (test code = 66357-9) NEGATIVE NEGATIVE [facility] Xkzmj1960-00-10 01:40:00* Test Item Value Reference Range Interpretation Comments Urine Color (test code = 5778-6) YELLOW YELLOW [facility] Ktjmolb9532-21-39 01:40:00* Test Item Value Reference Range Interpretation Comments Urine Clarity (test code = 47840-0) CLEAR CLEAR [facility] Specific Fbchoeq7316-05-77 01:40:00 * Test Item Value Reference Range Interpretation Comments Urine Specific [place] (test code = 5811-5) 1.005 1.010-1.02 5 L [facility] qQ0364-12-35 01:40:00* Test Item Value Reference Range Interpretation Comments Urine pH (test code = 74101-2) 7 5-7 [facility] Leukocyte Dxgjkdgd8413-55-87 01:40:00* Test Item Value Reference Range Interpretation Comments Urine Leukocyte Esterase (test code = 5799-2) NEGATIVE NEGATIVE [facility] Rbzzajq3502-86-18 01:40:00* Test Item Value Reference Range Interpretation Comments Urine Nitrite (test code = 74439-2) NEGATIVE NEGATIVE [facility] Isquwlx2565-01-19 01:40:00* Test Item Value Reference Range Interpretation Comments Urine Protein (test code = 5804-0) NEGATIVE NEGATIVE [facility] Glucose (UA)2018-05-18 01:40:00* Test Item Value Reference Range Interpretation Comments Urine Glucose (UA) (test code = 2349-9) NEGATIVE NEGATIVE [facility] Bwolueb8648-50-42 01:40:00* Test Item Value Reference Range Interpretation Comments Urine Ketones (test code = 46367-8) NEGATIVE NEGATIVE [facility] Jylpzdpinxmu6382-04-55 01:40:00* Test Item Value Reference Range Interpretation Comments Urine Urobilinogen (test code = 42821-6) 0.2 0.2-1 [facility] Obehxydfj8063-58-22 01:40:00* Test Item Value Reference Range Interpretation Comments Urine Bilirubin (test code = 1978-6) NEGATIVE NEGATIVE [facility] Krjgd1029-96-40 01:40:00* Test Item Value Reference Range Interpretation Comments Urine Blood (test code = 21919-8) NEGATIVE NEGATIVE [facility] Rfgzj6956-60-18 01:40:00* Test Item Value Reference Range Interpretation Comments Urine Color (test code = 5778-6) YELLOW YELLOW [facility] Cwvogge9150-31-86 01:40:00* Test Item Value Reference Range Interpretation Comments Urine Clarity (test code = 06006-5) CLEAR CLEAR [facility] Specific Joclmkd7595-09-43 01:40:00 * Test Item Value Reference Range Interpretation Comments Urine Specific [place] (test code = 5811-5) 1.005 1.010-1.02 5 L [facility] cZ2268-91-49 01:40:00* Test Item Value Reference Range Interpretation Comments Urine pH (test code = 64334-3) 7 5-7 [facility] Leukocyte Oremmxiu9808-46-79 01:40:00* Test Item Value Reference Range Interpretation Comments Urine Leukocyte Esterase (test code = 5799-2) NEGATIVE NEGATIVE [facility] Uogpvnq1863-30-44 01:40:00* Test Item Value Reference Range Interpretation Comments Urine Nitrite (test code = 99839-2) NEGATIVE NEGATIVE [facility] Udonacd3328-21-05 01:40:00* Test Item Value Reference Range Interpretation Comments Urine Protein (test code = 5804-0) NEGATIVE NEGATIVE [facility] Glucose (UA)2018-05-18 01:40:00* Test Item Value Reference Range Interpretation Comments Urine Glucose (UA) (test code = 2349-9) NEGATIVE NEGATIVE [facility] Vfjodah5528-24-39 01:40:00* Test Item Value Reference Range Interpretation Comments Urine Ketones (test code = 59212-8) NEGATIVE NEGATIVE [facility] Zgpwzmkvzdok0852-71-12 01:40:00* Test Item Value Reference Range Interpretation Comments Urine Urobilinogen (test code = 54546-5) 0.2 0.2-1 [facility] Fldowqxhi7752-02-03 01:40:00* Test Item Value Reference Range Interpretation Comments Urine Bilirubin (test code = 1978-6) NEGATIVE NEGATIVE [facility] Usdjx4294-26-81 01:40:00* Test Item Value Reference Range Interpretation Comments Urine Blood (test code = 63207-5) NEGATIVE NEGATIVE [facility] Uqgsl4121-31-25 01:40:00* Test Item Value Reference Range Interpretation Comments Urine Color (test code = 5778-6) YELLOW YELLOW [facility] Xnlzlot1669-68-16 01:40:00* Test Item Value Reference Range Interpretation Comments Urine Clarity (test code = 06267-7) CLEAR CLEAR [facility] Specific Kprigcg0873-65-32 01:40:00 * Test Item Value Reference Range Interpretation Comments Urine Specific [place] (test code = 5811-5) 1.005 1.010-1.02 5 L [facility] dN2421-75-60 01:40:00* Test Item Value Reference Range Interpretation Comments Urine pH (test code = 18393-9) 7 5-7 [facility] Leukocyte Bqaclwem6212-92-60 01:40:00* Test Item Value Reference Range Interpretation Comments Urine Leukocyte Esterase (test code = 5799-2) NEGATIVE NEGATIVE [facility] Qgpjdtl4001-76-29 01:40:00* Test Item Value Reference Range Interpretation Comments Urine Nitrite (test code = 23984-7) NEGATIVE NEGATIVE [facility] Uvotbfr2765-01-93 01:40:00* Test Item Value Reference Range Interpretation Comments Urine Protein (test code = 5804-0) NEGATIVE NEGATIVE [facility] Glucose (UA)2018-05-18 01:40:00* Test Item Value Reference Range Interpretation Comments Urine Glucose (UA) (test code = 2349-9) NEGATIVE NEGATIVE [facility] Dennmmp5823-15-20 01:40:00* Test Item Value Reference Range Interpretation Comments Urine Ketones (test code = 11607-2) NEGATIVE NEGATIVE [facility] Ilfwofeadfke5886-02-18 01:40:00* Test Item Value Reference Range Interpretation Comments Urine Urobilinogen (test code = 29616-0) 0.2 0.2-1 [facility] Ckrvzeisb8814-60-37 01:40:00* Test Item Value Reference Range Interpretation Comments Urine Bilirubin (test code = 1978-6) NEGATIVE NEGATIVE [facility] Ngqrt9303-16-44 01:40:00* Test Item Value Reference Range Interpretation Comments Urine Blood (test code = 00380-2) NEGATIVE NEGATIVE [facility] Mafzo5709-68-81 01:40:00* Test Item Value Reference Range Interpretation Comments Urine Color (test code = 5778-6) YELLOW YELLOW [facility] Fajmfzg7731-01-60 01:40:00* Test Item Value Reference Range Interpretation Comments Urine Clarity (test code = 61236-4) CLEAR CLEAR [facility] Specific Lorhhnq2794-50-31 01:40:00 * Test Item Value Reference Range Interpretation Comments Urine Specific [place] (test code = 5811-5) 1.005 1.010-1.02 5 L [facility] pW8031-40-36 01:40:00* Test Item Value Reference Range Interpretation Comments Urine pH (test code = 61831-8) 7 5-7 [facility] Leukocyte Inlmrknf8342-03-22 01:40:00* Test Item Value Reference Range Interpretation Comments Urine Leukocyte Esterase (test code = 5799-2) NEGATIVE NEGATIVE [facility] Nobcums6543-68-55 01:40:00* Test Item Value Reference Range Interpretation Comments Urine Nitrite (test code = 20310-3) NEGATIVE NEGATIVE [facility] Mupenpo7155-15-21 01:40:00* Test Item Value Reference Range Interpretation Comments Urine Protein (test code = 5804-0) NEGATIVE NEGATIVE [facility] Glucose (UA)2018-05-18 01:40:00* Test Item Value Reference Range Interpretation Comments Urine Glucose (UA) (test code = 2349-9) NEGATIVE NEGATIVE [facility] Kxsjdjl4689-22-66 01:40:00* Test Item Value Reference Range Interpretation Comments Urine Ketones (test code = 64649-3) NEGATIVE NEGATIVE [facility] Rxupmjozvxpl5266-72-12 01:40:00* Test Item Value Reference Range Interpretation Comments Urine Urobilinogen (test code = 98484-6) 0.2 0.2-1 [facility] Qalmbxyko6493-81-30 01:40:00* Test Item Value Reference Range Interpretation Comments Urine Bilirubin (test code = 1978-6) NEGATIVE NEGATIVE [facility] Jypon7913-71-66 01:40:00* Test Item Value Reference Range Interpretation Comments Urine Blood (test code = 75951-4) NEGATIVE NEGATIVE [facility] Qktjk6240-78-31 01:40:00* Test Item Value Reference Range Interpretation Comments Urine Color (test code = 5778-6) YELLOW YELLOW [facility] Qvgrziq3856-20-67 01:40:00* Test Item Value Reference Range Interpretation Comments Urine Clarity (test code = 69229-8) CLEAR CLEAR [facility] Specific Totvhlb8386-50-88 01:40:00 * Test Item Value Reference Range Interpretation Comments Urine Specific [place] (test code = 5811-5) 1.005 1.010-1.02 5 L [facility] aF5068-68-87 01:40:00* Test Item Value Reference Range Interpretation Comments Urine pH (test code = 91777-3) 7 5-7 [facility] Leukocyte Dxyrwpel5950-77-00 01:40:00* Test Item Value Reference Range Interpretation Comments Urine Leukocyte Esterase (test code = 5799-2) NEGATIVE NEGATIVE [facility] Isusysv6799-96-00 01:40:00* Test Item Value Reference Range Interpretation Comments Urine Nitrite (test code = 21415-9) NEGATIVE NEGATIVE [facility] Rvkknyk3994-17-13 01:40:00* Test Item Value Reference Range Interpretation Comments Urine Protein (test code = 5804-0) NEGATIVE NEGATIVE [facility] Glucose (UA)2018-05-18 01:40:00* Test Item Value Reference Range Interpretation Comments Urine Glucose (UA) (test code = 2349-9) NEGATIVE NEGATIVE [facility] Mszvfxr4037-66-92 01:40:00* Test Item Value Reference Range Interpretation Comments Urine Ketones (test code = 77903-1) NEGATIVE NEGATIVE [facility] Nvqfhuyezieq3680-02-90 01:40:00* Test Item Value Reference Range Interpretation Comments Urine Urobilinogen (test code = 88371-5) 0.2 0.2-1 [facility] Wqbjxvrbb6419-46-10 01:40:00* Test Item Value Reference Range Interpretation Comments Urine Bilirubin (test code = 1978-6) NEGATIVE NEGATIVE [facility] Thoga4253-08-18 01:40:00* Test Item Value Reference Range Interpretation Comments Urine Blood (test code = 52425-2) NEGATIVE NEGATIVE [facility]2018-05-18 00:28:00 [facility] [address] [address] Patient Name: FRED CARTER JR MR #: [id number] : 1940 Age/Sex: 77/M Req #: [id number] Adm Physician: Ordered by: MAYELA OATES MD Report #: [id number] Location: ER Room/Bed: Procedure: [id number] DX /CHEST SINGLE (PORTABLE) Exam Date: 05/18/18 Exam Ti me: [id number] REPORT STATUS: Signed E XAMINATION: CHEST SINGLE (PORTABLE) INDICATION: CHEST PAIN COMPARISON: Chest x-ray 05/16/2015. FINDINGS: AP view TUBES an d LINES: None. LUNGS: Lungs are not well inflated. There are bibasilar a telectasis. There is no evidence of pneumonia or pulmonary edema. PLEURA: No pleural effusion or pneumothorax. HEART AND MEDIASTINUM: The cardiome diastinal silhouette is unremarkable. BONES AND SOFT TISSUES: No acute osseous lesion. Soft tissues are unremarkable. UPPER ABDOMEN: No free a ir under the diaphragm. IMPRESSION: Hypoinflated lungs with bibasila r atelectasis. Signed by: Dr. Juanjose Grubbs M.D. on 05/18/2018 12:30 AM Dictated By: JUANJOSE GRUBBS MD Transcribed By: ELINA on 05/18/1829 COPY TO: MAYELA OATES MD Sodium Qzozt6923-71-37 00:24:00* Test Item Value Reference Range Interpretation Comments Sodium Level (test code = 2951-2) 135 136-145 L [facility]Potassium Hygkw2359-40-57 00:24:00* Test Item Value Reference Range Interpretation Comments Potassium Level (test code = 2823-3) 4.1 3.5-5.1 [facility]ervilleChloride Nmkvm5210-02-33 00:24:00* Test Item Value Reference Range Interpretation Comments Chloride Level (test code = 2075-0) 101 98-107 [facility]ervilleCarbon Dioxide Djdch8776-29-23 00:24:00* Test Item Value Reference Range Interpretation Comments Carbon Dioxide Level (test code = 2028-9) 26 22-29 [facility]ervilleAnion Tem7220-72-33 00:24:00* Test Item Value Reference Range Interpretation Comments Anion Gap (test code = 49474-3) 12.1 8-16 [facility]ervilleBlood Urea Nfmbqnhu0357-86-70 00:24:00* Test Item Value Reference Range Interpretation Comments Blood Urea Nitrogen (test code = 3094-0) 13 7-26 [facility]ervilleCreatinine2019-04-12 00:24:00* Test Item Value Reference Range Interpretation Comments Creatinine (test code = 2160-0) 0.89 0.72-1.25 [facility]ervilleBUN/Creatinine Qddsy0501-14-42 00:24:00* Test Item Value Reference Range Interpretation Comments BUN/Creatinine Ratio (test code = 3097-3) 15 6-25 [facility]ervilleEstimat Glomerular Filtration Rate 2018-05-18 00:24:00* Test Item Value Reference Range Interpretation Comments Estimat Glomerular Filtration Rate (test code = 881004432) > 60 >60 Ranges were taken from the National Kidney Disease Education Program and the [facility] [employer] literature.Reference ranges:60 or greater: Laxmle03-23 ( for 3 consecutive months): Chronic kidney disease 15 or less: Kidney failureBaylor Scott & [facility] – PflugervilleGlucose Vekca6886-40-37 00:24:00* Test Item Value Reference Range Interpretation Comments Glucose Level (test code = GPA2504) 151 74-118 H [facility]ervilleCalcium Icmod3545-84-17 00:24:00* Test Item Value Reference Range Interpretation Comments Calcium Level (test code = 67703-9) 9.3 8.4-10.2 [facility]ervilleMagnesium Ejkbe6095-48-65 00:24:00* Test Item Value Reference Range Interpretation Comments Magnesium Level (test code = 89722-2) 2.2 1.3-2.1 H [facility]fl[facility]ervilleTotal Rkenuqzbr1114-94-64 00:24:00* Test Item Value Reference Range Interpretation Comments Total Bilirubin (test code = 1975-2) 1.1 0.2-1.2 [facility]flugervilleAspartate Amino Transf (AST/SGOT) 2018-05-18 00:24:00* Test Item Value Reference Range Interpretation Comments Aspartate Amino Transf (AST/SGOT) (test code = Aspartate Amino Transf (AST/SGOT)) 19 5-34 [facility]ervilleAlanine Aminotransferase (ALT/SGPT) 2018-05-18 00:24:00* Test Item Value Reference Range Interpretation Comments Alanine Aminotransferase (ALT/SGPT) (test code = 1742-6) 14 0-55 [facility]flugervilleTotal Myamzxz6110-45-02 00:24:00* Test Item Value Reference Range Interpretation Comments Total Protein (test code = 2885-2) 8.0 6.5-8.1 [facility]ervilleAlbumin2019-04-12 00:24:00* Test Item Value Reference Range Interpretation Comments Albumin (test code = 1751-7) 3.8 3.5-5.0 [facility]ervilleGlobulin2019-04-12 00:24:00* Test Item Value Reference Range Interpretation Comments Globulin (test code = 47163-4) 4.2 2.3-3.5 H [facility]ervilleAlbumin/Globulin Ymtoe3848-56-27 00:24:00 * Test Item Value Reference Range Interpretation Comments Albumin/Globulin Ratio (test code = 1759-0) 0.9 0.8-2.0 [facility]ervilleAlkaline Lyibncqukgm2563-92-15 00:24:00* Test Item Value Reference Range Interpretation Comments Alkaline Phosphatase (test code = 6768-6) 86 40-150 [facility]odium Lcmeh3606-46-92 00:24:00* Test Item Value Reference Range Interpretation Comments Sodium Level (test code = 2951-2) 135 136-145 L [facility]ervillePotassium Knoti6187-70-18 00:24:00* Test Item Value Reference Range Interpretation Comments Potassium Level (test code = 2823-3) 4.1 3.5-5.1 [facility]ervilleChloride Yyehh8390-92-64 00:24:00* Test Item Value Reference Range Interpretation Comments Chloride Level (test code = 2075-0) 101 98-107 [facility]ervilleCarbon Dioxide Wkckj1863-44-68 00:24:00* Test Item Value Reference Range Interpretation Comments Carbon Dioxide Level (test code = 2028-9) 26 22-29 [facility] PflugervilleAnion Yzg1977-10-48 00:24:00* Test Item Value Reference Range Interpretation Comments Anion Gap (test code = 80006-3) 12.1 8-16 [facility]ervilleBlood Urea Tohcisfh8211-18-72 00:24:00* Test Item Value Reference Range Interpretation Comments Blood Urea Nitrogen (test code = 3094-0) 13 7-26 [facility]ervilleCreatinine2019-04-12 00:24:00* Test Item Value Reference Range Interpretation Comments Creatinine (test code = 2160-0) 0.89 0.72-1.25 [facility]ervilleBUN/Creatinine Jdcnr7643-02-24 00:24:00* Test Item Value Reference Range Interpretation Comments BUN/Creatinine Ratio (test code = 3097-3) 15 6-25 [facility]ervilleEstimat Glomerular Filtration Rate 2018-05-18 00:24:00* Test Item Value Reference Range Interpretation Comments Estimat Glomerular Filtration Rate (test code = 038883517) > 60 >60 Ranges were taken from the National Kidney Disease Education Program and the [facility] Kidney Foundation literature.Reference ranges:60 or greater: Yxtins13-30 ( for 3 consecutive months): Chronic kidney disease 15 or less: Kidney failureBaylor Scott & [facility] Medical Center – PflugervilleGlucose Jcxoz2251-76-90 00:24:00* Test Item Value Reference Range Interpretation Comments Glucose Level (test code = AFO4102) 151 74-118 H [facility]ervilleCalcium Aafdw8231-38-07 00:24:00* Test Item Value Reference Range Interpretation Comments Calcium Level (test code = 92561-3) 9.3 8.4-10.2 [facility]ervilleMagnesium Xyarp8840-60-72 00:24:00* Test Item Value Reference Range Interpretation Comments Magnesium Level (test code = 28973-4) 2.2 1.3-2.1 H [facility]ervilleTotal Gykrykrah6124-76-50 00:24:00* Test Item Value Reference Range Interpretation Comments Total Bilirubin (test code = 1975-2) 1.1 0.2-1.2 [facility]ugervilleAspartate Amino Transf (AST/SGOT) 2018-05-18 00:24:00* Test Item Value Reference Range Interpretation Comments Aspartate Amino Transf (AST/SGOT) (test code = Aspartate Amino Transf (AST/SGOT)) 19 5-34 [facility]ervilleAlanine Aminotransferase (ALT/SGPT) 2018-05-18 00:24:00* Test Item Value Reference Range Interpretation Comments Alanine Aminotransferase (ALT/SGPT) (test code = 1742-6) 14 0-55 [facility]ervilleTotal Scstkqy6630-96-12 00:24:00* Test Item Value Reference Range Interpretation Comments Total Protein (test code = 2885-2) 8.0 6.5-8.1 [facility]ervilleAlbumin2019-04-12 00:24:00* Test Item Value Reference Range Interpretation Comments Albumin (test code = 1751-7) 3.8 3.5-5.0 [facility]ervilleGlobulin2019-04-12 00:24:00* Test Item Value Reference Range Interpretation Comments Globulin (test code = 19624-7) 4.2 2.3-3.5 H [facility]ervilleAlbumin/Globulin Kpgab7059-71-89 00:24:00 * Test Item Value Reference Range Interpretation Comments Albumin/Globulin Ratio (test code = 1759-0) 0.9 0.8-2.0 [facility]ervilleAlkaline Pizkuzlvuok1077-50-43 00:24:00* Test Item Value Reference Range Interpretation Comments Alkaline Phosphatase (test code = 6768-6) 86 40-150 [facility] Hospitalodium Czoql5686-21-01 00:24:00* Test Item Value Reference Range Interpretation Comments Sodium Level (test code = 2951-2) 135 136-145 L [facility]ervillePotassium Jfiof2883-35-20 00:24:00* Test Item Value Reference Range Interpretation Comments Potassium Level (test code = 2823-3) 4.1 3.5-5.1 [facility]ervilleChloride Xhdax9175-34-48 00:24:00* Test Item Value Reference Range Interpretation Comments Chloride Level (test code = 2075-0) 101 98-107 [facility]ervilleCarbon Dioxide Vivxq7460-94-91 00:24:00* Test Item Value Reference Range Interpretation Comments Carbon Dioxide Level (test code = 2028-9) 26 22-29 [facility] PflugervilleAnion Eda8119-14-87 00:24:00* Test Item Value Reference Range Interpretation Comments Anion Gap (test code = 70419-6) 12.1 8-16 [facility]ervilleBlood Urea Yyeqiaed7718-06-26 00:24:00* Test Item Value Reference Range Interpretation Comments Blood Urea Nitrogen (test code = 3094-0) 13 7-26 [facility]ugervilleCreatinine2019-04-12 00:24:00* Test Item Value Reference Range Interpretation Comments Creatinine (test code = 2160-0) 0.89 0.72-1.25 [facility]ervilleBUN/Creatinine Zfybf3700-92-53 00:24:00* Test Item Value Reference Range Interpretation Comments BUN/Creatinine Ratio (test code = 3097-3) 15 6-25 [facility]ugervilleEstimat Glomerular Filtration Rate 2018-05-18 00:24:00* Test Item Value Reference Range Interpretation Comments Estimat Glomerular Filtration Rate (test code = 293476469) > 60 >60 Ranges were taken from the National Kidney Disease Education Program and the [facility] Kid[employer] Foundation literature.Reference ranges:60 or greater: Fohakm54-03 ( for 3 consecutive months): Chronic kidney disease 15 or less: Kidney failureBaylor Scott & [facility] – PflugervilleGlucose Jslaa5033-13-06 00:24:00* Test Item Value Reference Range Interpretation Comments Glucose Level (test code = PRJ0721) 151 74-118 H [facility]ervilleCalcium Hexuu0939-28-27 00:24:00* Test Item Value Reference Range Interpretation Comments Calcium Level (test code = 83273-0) 9.3 8.4-10.2 [facility]ervilleMagnesium Nkfxc9988-47-26 00:24:00* Test Item Value Reference Range Interpretation Comments Magnesium Level (test code = 58515-1) 2.2 1.3-2.1 H [facility]ervilleTotal Zyeerwjuh2575-82-28 00:24:00* Test Item Value Reference Range Interpretation Comments Total Bilirubin (test code = 1975-2) 1.1 0.2-1.2 [facility]ugervilleAspartate Amino Transf (AST/SGOT) 2018-05-18 00:24:00* Test Item Value Reference Range Interpretation Comments Aspartate Amino Transf (AST/SGOT) (test code = Aspartate Amino Transf (AST/SGOT)) 19 5-34 [facility]ervilleAlanine Aminotransferase (ALT/SGPT) 2018-05-18 00:24:00* Test Item Value Reference Range Interpretation Comments Alanine Aminotransferase (ALT/SGPT) (test code = 1742-6) 14 0-55 [facility]ervilleTotal Yfoacdz1216-62-67 00:24:00* Test Item Value Reference Range Interpretation Comments Total Protein (test code = 2885-2) 8.0 6.5-8.1 [facility]ugervilleAlbumin2019-04-12 00:24:00* Test Item Value Reference Range Interpretation Comments Albumin (test code = 1751-7) 3.8 3.5-5.0 [facility] [facility]ervilleGlobulin2019-[facility] 00:24:00* Test Item Value Reference Range Interpretation Comments Globulin (test code = 09150-7) 4.2 2.3-3.5 H [facility] [place]ervilleAlbumin/Globulin Apgxi3677-66-58 00:24:00 * Test Item Value Reference Range Interpretation Comments Albumin/Globulin Ratio (test code = 1759-0) 0.9 0.8-2.0 [facility]ervilleAlkaline Cdzbhgxzvho5143-05-51 00:24:00* Test Item Value Reference Range Interpretation Comments Alkaline Phosphatase (test code = 6768-6) 86 40-150 [facility]odium Jczdd6638-32-42 00:24:00* Test Item Value Reference Range Interpretation Comments Sodium Level (test code = 2951-2) 135 136-145 L [facility] [place]ervillePotassium Refqv4850-53-26 00:24:00* Test Item Value Reference Range Interpretation Comments Potassium Level (test code = 2823-3) 4.1 3.5-5.1 [facility] [place]Chloride Yvfjs1678-27-71 00:24:00* Test Item Value Reference Range Interpretation Comments Chloride Level (test code = 2075-0) 101 98-107 [facility] [place]ervilleCarbon Dioxide Gplbb6962-69-50 00:24:00* Test Item Value Reference Range Interpretation Comments Carbon Dioxide Level (test code = 2028-9) 26 22-29 [facility]ervilleAnion Loh9095-22-13 00:24:00* Test Item Value Reference Range Interpretation Comments Anion Gap (test code = 42300-7) 12.1 8-16 [facility] [place]ervilleBlood Urea Swbmrkry8304-32-65 00:24:00* Test Item Value Reference Range Interpretation Comments Blood Urea Nitrogen (test code = 3094-0) 13 7-26 [facility]ervilleCreatinine2019-04-12 00:24:00* Test Item Value Reference Range Interpretation Comments Creatinine (test code = 2160-0) 0.89 0.72-1.25 [facility] [place]BUN/Creatinine Zjguo2239-82-82 00:24:00* Test Item Value Reference Range Interpretation Comments BUN/Creatinine Ratio (test code = 3097-3) 15 6-25 [facility] [place]ervilleEstimat Glomerular Filtration Rate 2018-05-18 00:24:00* Test Item Value Reference Range Interpretation Comments Estimat Glomerular Filtration Rate (test code = 486814282) > 60 >60 Ranges were taken from the National Kidney Disease Education Program and the [facility] Kidney Foundation literature.Reference ranges:60 or greater: Vqmjql54-26 ( for 3 consecutive months): Chronic kidney disease 15 or less: Kidney failureCHI [facility] – KlebergGlucose Affld8161-46-69 00:24:00* Test Item Value Reference Range Interpretation Comments Glucose Level (test code = UZX7099) 151 74-118 H [facility] [place]Calcium Ejros7180-63-67 00:24:00* Test Item Value Reference Range Interpretation Comments Calcium Level (test code = 32389-6) 9.3 8.4-10.2 [facility]ervilleMagnesium Hpaqd6359-88-26 00:24:00* Test Item Value Reference Range Interpretation Comments Magnesium Level (test code = 93683-6) 2.2 1.3-2.1 H [facility] [place]ervilleTotal Mrtzzidpt9402-92-68 00:24:00* Test Item Value Reference Range Interpretation Comments Total Bilirubin (test code = 1975-2) 1.1 0.2-1.2 [facility]ervilleAspartate Amino Transf (AST/SGOT) 2018-05-18 00:24:00* Test Item Value Reference Range Interpretation Comments Aspartate Amino Transf (AST/SGOT) (test code = Aspartate Amino Transf (AST/SGOT)) 19 5-34 [facility] [place]ervilleAlanine Aminotransferase (ALT/SGPT) 2018-05-18 00:24:00* Test Item Value Reference Range Interpretation Comments Alanine Aminotransferase (ALT/SGPT) (test code = 1742-6) 14 0-55 [facility]ervilleTotal Qixklmx0696-98-14 00:24:00* Test Item Value Reference Range Interpretation Comments Total Protein (test code = 2885-2) 8.0 6.5-8.1 [facility] [place]ervilleAlbumin2019-04-12 00:24:00* Test Item Value Reference Range Interpretation Comments Albumin (test code = 1751-7) 3.8 3.5-5.0 [facility]ervilleGlobulin2019-04-12 00:24:00* Test Item Value Reference Range Interpretation Comments Globulin (test code = 20935-2) 4.2 2.3-3.5 H [facility]ervilleAlbumin/Globulin Hayfk8858-20-05 00:24:00 * Test Item Value Reference Range Interpretation Comments Albumin/Globulin Ratio (test code = 1759-0) 0.9 0.8-2.0 [facility]ervilleAlkaline Tbourqjldkr1697-33-14 00:24:00* Test Item Value Reference Range Interpretation Comments Alkaline Phosphatase (test code = 6768-6) 86 40-150 [facility] Hospitalodium Kqgsx6832-73-12 00:24:00* Test Item Value Reference Range Interpretation Comments Sodium Level (test code = 2951-2) 135 136-145 L [facility] [place]ervillePotassium Glxuk9943-60-36 00:24:00* Test Item Value Reference Range Interpretation Comments Potassium Level (test code = 2823-3) 4.1 3.5-5.1 [facility]ervilleChloride Uikka3029-94-57 00:24:00* Test Item Value Reference Range Interpretation Comments Chloride Level (test code = 2075-0) 101 98-107 [facility] [place]ervilleCarbon Dioxide Ozxpz6028-84-76 00:24:00* Test Item Value Reference Range Interpretation Comments Carbon Dioxide Level (test code = 2028-9) 26 22-29 [facility]ervilleAnion Bmg7838-94-22 00:24:00* Test Item Value Reference Range Interpretation Comments Anion Gap (test code = 75985-4) 12.1 8-16 [facility] [place]ervilleBlood Urea Vjbuuqmx3435-95-45 00:24:00* Test Item Value Reference Range Interpretation Comments Blood Urea Nitrogen (test code = 3094-0) 13 7-26 [facility]ervilleCreatinine2019-04-12 00:24:00* Test Item Value Reference Range Interpretation Comments Creatinine (test code = 2160-0) 0.89 0.72-1.25 [facility]ervilleBUN/Creatinine Jkoan4641-33-97 00:24:00* Test Item Value Reference Range Interpretation Comments BUN/Creatinine Ratio (test code = 3097-3) 15 07-31 [facility]ervilleEstimat Glomerular Filtration Rate 2018-05-18 00:24:00* Test Item Value Reference Range Interpretation Comments Estimat Glomerular Filtration Rate (test code = 264850627) > 60 >60 Ranges were taken from the National Kidney Disease Education Program and the [facility] Kid[facility] Foundation literature.Reference ranges:60 or greater: Pstbqb16-83 ( for 3 consecutive months): Chronic kidney disease 15 or less: Kidney failureCHI [facility] – KlebergGlucose Qpgqx5824-39-96 00:24:00* Test Item Value Reference Range Interpretation Comments Glucose Level (test code = ZBS2827) 151 74-118 H [facility]ervilleCalcium Rlrkt7408-81-66 00:24:00* Test Item Value Reference Range Interpretation Comments Calcium Level (test code = 16045-0) 9.3 8.4-10.2 [facility]ervilleMagnesium Gtgxs1239-32-93 00:24:00* Test Item Value Reference Range Interpretation Comments Magnesium Level (test code = 60434-0) 2.2 1.3-2.1 H [facility] [place]ervilleTotal Ucaykgtij5617-39-73 00:24:00* Test Item Value Reference Range Interpretation Comments Total Bilirubin (test code = 1975-2) 1.1 0.2-1.2 [facility]ervilleAspartate Amino Transf (AST/SGOT) 2018-05-18 00:24:00* Test Item Value Reference Range Interpretation Comments Aspartate Amino Transf (AST/SGOT) (test code = Aspartate Amino Transf (AST/SGOT)) 19 5-34 [facility] [place]ervilleAlanine Aminotransferase (ALT/SGPT) 2018-05-18 00:24:00* Test Item Value Reference Range Interpretation Comments Alanine Aminotransferase (ALT/SGPT) (test code = 1742-6) 14 0-55 [facility] [place]ervilleTotal Fyzukgu4464-55-10 00:24:00* Test Item Value Reference Range Interpretation Comments Total Protein (test code = 2885-2) 8.0 6.5-8.1 [facility]ervilleAlbumin2019-04-12 00:24:00* Test Item Value Reference Range Interpretation Comments Albumin (test code = 1751-7) 3.8 3.5-5.0 [facility]ervilleGlobulin2019-04-12 00:24:00* Test Item Value Reference Range Interpretation Comments Globulin (test code = 75085-1) 4.2 2.3-3.5 H [facility]ervilleAlbumin/Globulin Cseey4268-70-50 00:24:00 * Test Item Value Reference Range Interpretation Comments Albumin/Globulin Ratio (test code = 1759-0) 0.9 0.8-2.0 [facility]ervilleAlkaline Ovyvtufhyhc5308-67-19 00:24:00* Test Item Value Reference Range Interpretation Comments Alkaline Phosphatase (test code = 6768-6) 86 40-150 [facility] Hospitalodium Ukebx3137-15-28 00:24:00* Test Item Value Reference Range Interpretation Comments Sodium Level (test code = 2951-2) 135 136-145 L [facility]ervillePotassium Tqmrm0147-37-68 00:24:00* Test Item Value Reference Range Interpretation Comments Potassium Level (test code = 2823-3) 4.1 3.5-5.1 [facility]ervilleChloride Bhzyq0389-73-36 00:24:00* Test Item Value Reference Range Interpretation Comments Chloride Level (test code = 2075-0) 101 98-107 [facility] [place]ervilleCarbon Dioxide Umolk4452-62-28 00:24:00* Test Item Value Reference Range Interpretation Comments Carbon Dioxide Level (test code = 2028-9) 26 22-29 [facility]ervilleAnion Smh5077-22-75 00:24:00* Test Item Value Reference Range Interpretation Comments Anion Gap (test code = 74799-6) 12.1 8-16 [facility] [place]ervilleBlood Urea Ackraqyx5279-72-73 00:24:00* Test Item Value Reference Range Interpretation Comments Blood Urea Nitrogen (test code = 3094-0) 13 7-26 [facility]ervilleCreatinine2019-04-12 00:24:00* Test Item Value Reference Range Interpretation Comments Creatinine (test code = 2160-0) 0.89 0.72-1.25 [facility]ervilleBUN/Creatinine Pskol3264-41-40 00:24:00* Test Item Value Reference Range Interpretation Comments BUN/Creatinine Ratio (test code = 3097-3) 15 - [facility]ervilleEstimat Glomerular Filtration Rate 2018-05-18 00:24:00* Test Item Value Reference Range Interpretation Comments Estimat Glomerular Filtration Rate (test code = 933776001) > 60 >60 Ranges were taken from the National Kidney Disease Education Program and the [facility] Kidney Foundation literature.Reference ranges:60 or greater: Inkgvv49-91 ( for 3 consecutive months): Chronic kidney disease 15 or less: Kidney failureBaylor Scott & [facility] [place]ervilleGlucose Odatp6064-77-60 00:24:00* Test Item Value Reference Range Interpretation Comments Glucose Level (test code = ECR0358) 151 74-118 H [facility]ervilleCalcium Bmknj7743-31-43 00:24:00* Test Item Value Reference Range Interpretation Comments Calcium Level (test code = 38310-8) 9.3 8.4-10.2 [facility]ervilleMagnesium Ugynr0009-86-73 00:24:00* Test Item Value Reference Range Interpretation Comments Magnesium Level (test code = 00495-4) 2.2 1.3-2.1 H [facility]ervilleTotal Gvodkasqj7361-79-98 00:24:00* Test Item Value Reference Range Interpretation Comments Total Bilirubin (test code = 1975-2) 1.1 0.2-1.2 [facility]ervilleAspartate Amino Transf (AST/SGOT) 2018-05-18 00:24:00* Test Item Value Reference Range Interpretation Comments Aspartate Amino Transf (AST/SGOT) (test code = Aspartate Amino Transf (AST/SGOT)) 19 5-34 [facility] [place]ervilleAlanine Aminotransferase (ALT/SGPT) 2018-05-18 00:24:00* Test Item Value Reference Range Interpretation Comments Alanine Aminotransferase (ALT/SGPT) (test code = 1742-6) 14 0-55 [facility]fl[facility]ervilleTotal Sozzcez0012-76-37 00:24:00* Test Item Value Reference Range Interpretation Comments Total Protein (test code = 2885-2) 8.0 6.5-8.1 [facility]ervilleAlbumin2019-04-12 00:24:00* Test Item Value Reference Range Interpretation Comments Albumin (test code = 1751-7) 3.8 3.5-5.0 [facility]ervilleGlobulin2019-04-12 00:24:00* Test Item Value Reference Range Interpretation Comments Globulin (test code = 45396-5) 4.2 2.3-3.5 H [facility]ervilleAlbumin/Globulin Amcwv5687-16-48 00:24:00 * Test Item Value Reference Range Interpretation Comments Albumin/Globulin Ratio (test code = 1759-0) 0.9 0.8-2.0 [facility]ervilleAlkaline Abblaomvmad5625-30-48 00:24:00* Test Item Value Reference Range Interpretation Comments Alkaline Phosphatase (test code = 6768-6) 86 40-150 [facility] Hospitalodium Cncdv3174-37-34 00:24:00* Test Item Value Reference Range Interpretation Comments Sodium Level (test code = 2951-2) 135 136-145 L [facility]ervillePotassium Lizwa0585-32-81 00:24:00* Test Item Value Reference Range Interpretation Comments Potassium Level (test code = 2823-3) 4.1 3.5-5.1 [facility]ervilleChloride Vqwmg7647-67-17 00:24:00* Test Item Value Reference Range Interpretation Comments Chloride Level (test code = 2075-0) 101 98-107 [facility] [place]ervilleCarbon Dioxide Hohlf8128-18-24 00:24:00* Test Item Value Reference Range Interpretation Comments Carbon Dioxide Level (test code = 2028-9) 26 22-29 [facility]ervilleAnion Ksy8525-27-13 00:24:00* Test Item Value Reference Range Interpretation Comments Anion Gap (test code = 20616-8) 12.1 8-16 [facility] [place]ervilleBlood Urea Kshibavc1367-91-98 00:24:00* Test Item Value Reference Range Interpretation Comments Blood Urea Nitrogen (test code = 3094-0) 13 7-26 [facility]ervilleCreatinine2019-04-12 00:24:00* Test Item Value Reference Range Interpretation Comments Creatinine (test code = 2160-0) 0.89 0.72-1.25 [facility] [place]ervilleBUN/Creatinine Plbky4819-11-52 00:24:00* Test Item Value Reference Range Interpretation Comments BUN/Creatinine Ratio (test code = 3097-3) 15 07-31 [facility]ervilleEstimat Glomerular Filtration Rate 2018-05-18 00:24:00* Test Item Value Reference Range Interpretation Comments Estimat Glomerular Filtration Rate (test code = 732611422) > 60 >60 Ranges were taken from the National Kidney Disease Education Program and the [facility] Kidney Foundation literature.Reference ranges:60 or greater: Kgabuu07-36 ( for 3 consecutive months): Chronic kidney disease 15 or less: Kidney failureBaylor Scott & [facility] – PflugervilleGlucose Lvopz0117-63-20 00:24:00* Test Item Value Reference Range Interpretation Comments Glucose Level (test code = THZ4949) 151 74-118 H [facility] [place]ervilleCalcium Iodts1359-83-51 00:24:00* Test Item Value Reference Range Interpretation Comments Calcium Level (test code = 85211-6) 9.3 8.4-10.2 [facility]ervilleMagnesium Avzic0716-29-53 00:24:00* Test Item Value Reference Range Interpretation Comments Magnesium Level (test code = 38823-2) 2.2 1.3-2.1 H [facility] [place]ervilleTotal Fypgvfano4935-88-05 00:24:00* Test Item Value Reference Range Interpretation Comments Total Bilirubin (test code = 1975-2) 1.1 0.2-1.2 [facility]ervilleAspartate Amino Transf (AST/SGOT) 2018-05-18 00:24:00* Test Item Value Reference Range Interpretation Comments Aspartate Amino Transf (AST/SGOT) (test code = Aspartate Amino Transf (AST/SGOT)) 19 5-34 [facility] [place]ervilleAlanine Aminotransferase (ALT/SGPT) 2018-05-18 00:24:00* Test Item Value Reference Range Interpretation Comments Alanine Aminotransferase (ALT/SGPT) (test code = 1742-6) 14 0-55 [facility]ervilleTotal Fqezkiw9335-83-24 00:24:00* Test Item Value Reference Range Interpretation Comments Total Protein (test code = 2885-2) 8.0 6.5-8.1 [facility]ervilleAlbumin2019-04-12 00:24:00* Test Item Value Reference Range Interpretation Comments Albumin (test code = 1751-7) 3.8 3.5-5.0 [facility]ervilleGlobulin2019-04-12 00:24:00* Test Item Value Reference Range Interpretation Comments Globulin (test code = 16281-0) 4.2 2.3-3.5 H [facility]ervilleAlbumin/Globulin Oiejn5668-57-34 00:24:00 * Test Item Value Reference Range Interpretation Comments Albumin/Globulin Ratio (test code = 1759-0) 0.9 0.8-2.0 [facility]ervilleAlkaline Iervzgrgshd2981-38-88 00:24:00* Test Item Value Reference Range Interpretation Comments Alkaline Phosphatase (test code = 6768-6) 86 40-150 [facility]ervilleProthrombin Zzxh8654-50-33 00:13:00* Test Item Value Reference Range Interpretation Comments Prothrombin Time (test code = 5902-2) 12.5 11.9-14.5 [facility] PflugervilleProthromb Time International Ratio 2018-05-18 00:13:00* Test Item Value Reference Range Interpretation Comments Prothromb Time International Ratio (test code = 6301-6) 0.89 Oral Anticoagulant Therapy INR Values:1. Low Intensity Therapy 1.5 - 2.02 . Moderate Intensity Therapy 2.0 - 3.03. High Intensity Therapy(1) 2.5 - 3. 54. High Intensity Therapy(2) 3.0 - 4.05. Panic Value INR > 5.0 [facility]ugervilleActivated Partial Thromboplast Time 2018-05-18 00:13:00* Test Item Value Reference Range Interpretation Comments Activated Partial Thromboplast Time (test code = 29212-0) 57.1 23.8-35.5 H [facility]ervilleProthrombin Qbrw1510-46-75 00:13:00* Test Item Value Reference Range Interpretation Comments Prothrombin Time (test code = 5902-2) 12.5 11.9-14.5 [facility]ervilleProthromb Time International Ratio 2018-05-18 00:13:00* Test Item Value Reference Range Interpretation Comments Prothromb Time International Ratio (test code = 6301-6) 0.89 Oral Anticoagulant Therapy INR Values:1. Low Intensity Therapy 1.5 - 2.02 . Moderate Intensity Therapy 2.0 - 3.03. High Intensity Therapy(1) 2.5 - 3. 54. High Intensity Therapy(2) 3.0 - 4.05. Panic Value INR > 5.0 [facility]ervilleActivated Partial Thromboplast Time 2018-05-18 00:13:00* Test Item Value Reference Range Interpretation Comments Activated Partial Thromboplast Time (test code = 09622-5) 57.1 23.8-35.5 H [facility]ervilleProthrombin Jdql2675-73-13 00:13:00* Test Item Value Reference Range Interpretation Comments Prothrombin Time (test code = 5902-2) 12.5 11.9-14.5 [facility]ervilleProthromb Time International Ratio 2018-05-18 00:13:00* Test Item Value Reference Range Interpretation Comments Prothromb Time International Ratio (test code = 6301-6) 0.89 Oral Anticoagulant Therapy INR Values:1. Low Intensity Therapy 1.5 - 2.02 . Moderate Intensity Therapy 2.0 - 3.03. High Intensity Therapy(1) 2.5 - 3. 54. High Intensity Therapy(2) 3.0 - 4.05. Panic Value INR > 5.0 [facility]ervilleActivated Partial Thromboplast Time 2018-05-18 00:13:00* Test Item Value Reference Range Interpretation Comments Activated Partial Thromboplast Time (test code = 71562-7) 57.1 23.8-35.5 H [facility]ervilleProthrombin Pnib2020-48-97 00:13:00* Test Item Value Reference Range Interpretation Comments Prothrombin Time (test code = 5902-2) 12.5 11.9-14.5 [facility]ervilleProthromb Time International Ratio 2018-05-18 00:13:00* Test Item Value Reference Range Interpretation Comments Prothromb Time International Ratio (test code = 6301-6) 0.89 Oral Anticoagulant Therapy INR Values:1. Low Intensity Therapy 1.5 - 2.02 . Moderate Intensity Therapy 2.0 - 3.03. High Intensity Therapy(1) 2.5 - 3. 54. High Intensity Therapy(2) 3.0 - 4.05. Panic Value INR > 5.0 [facility]ervilleActivated Partial Thromboplast Time 2018-05-18 00:13:00* Test Item Value Reference Range Interpretation Comments Activated Partial Thromboplast Time (test code = 54479-6) 57.1 23.8-35.5 H [facility]ervilleProthrombin Kzlm0538-23-69 00:13:00* Test Item Value Reference Range Interpretation Comments Prothrombin Time (test code = 5902-2) 12.5 11.9-14.5 [facility]ervilleProthromb Time International Ratio 2018-05-18 00:13:00* Test Item Value Reference Range Interpretation Comments Prothromb Time International Ratio (test code = 6301-6) 0.89 Oral Anticoagulant Therapy INR Values:1. Low Intensity Therapy 1.5 - 2.02 . Moderate Intensity Therapy 2.0 - 3.03. High Intensity Therapy(1) 2.5 - 3. 54. High Intensity Therapy(2) 3.0 - 4.05. Panic Value INR > 5.0 [facility]ervilleActivated Partial Thromboplast Time 2018-05-18 00:13:00* Test Item Value Reference Range Interpretation Comments Activated Partial Thromboplast Time (test code = 12074-8) 57.1 23.8-35.5 H [facility]ervilleProthrombin Ecul9382-11-13 00:13:00* Test Item Value Reference Range Interpretation Comments Prothrombin Time (test code = 5902-2) 12.5 11.9-14.5 [facility]ervilleProthromb Time International Ratio 2018-05-18 00:13:00* Test Item Value Reference Range Interpretation Comments Prothromb Time International Ratio (test code = 6301-6) 0.89 Oral Anticoagulant Therapy INR Values:1. Low Intensity Therapy 1.5 - 2.02 . Moderate Intensity Therapy 2.0 - 3.03. High Intensity Therapy(1) 2.5 - 3. 54. High Intensity Therapy(2) 3.0 - 4.05. Panic Value INR > 5.0 [facility]ervilleActivated Partial Thromboplast Time 2018-05-18 00:13:00* Test Item Value Reference Range Interpretation Comments Activated Partial Thromboplast Time (test code = 40635-7) 57.1 23.8-35.5 H [facility]ervilleProthrombin Blfx7837-33-66 00:13:00* Test Item Value Reference Range Interpretation Comments Prothrombin Time (test code = 5902-2) 12.5 11.9-14.5 [facility]ervilleProthromb Time International Ratio 2018-05-18 00:13:00* Test Item Value Reference Range Interpretation Comments Prothromb Time International Ratio (test code = 6301-6) 0.89 Oral Anticoagulant Therapy INR Values:1. Low Intensity Therapy 1.5 - 2.02 . Moderate Intensity Therapy 2.0 - 3.03. High Intensity Therapy(1) 2.5 - 3. 54. High Intensity Therapy(2) 3.0 - 4.05. Panic Value INR > 5.0 [facility]ervilleActivated Partial Thromboplast Time 2018-05-18 00:13:00* Test Item Value Reference Range Interpretation Comments Activated Partial Thromboplast Time (test code = 30186-6) 57.1 23.8-35.5 H [facility]ervilleWhite Blood Hsjab2455-36-32 23:55:00* Test Item Value Reference Range Interpretation Comments White Blood Count (test code = 6690-2) 6.13 4.8-10.8 [facility]ervilleRed Blood Umvbw5170-14-27 23:55:00* Test Item Value Reference Range Interpretation Comments Red Blood Count (test code = 789-8) 4.21 4.3-5.7 L [facility] PflugervilleHemoglobin2019-04-11 23:55:00* Test Item Value Reference Range Interpretation Comments Hemoglobin (test code = 18462-6) 14.5 14.0-18.0 [facility] – [place]ematocrit[place] 23:55:00* Test Item Value Reference Range Interpretation Comments Hematocrit (test code = 4544-3) 41.5 38.2-49.6 [facility] [place]Mean Corpuscular [id number] 23:55:00* Test Item Value Reference Range Interpretation Comments Mean Corpuscular Volume (test code = 787-2) 98.6 81-99 [facility] [place]Mean Corpuscular Giojfzxgem1159-75-55 23:55:00* Test Item Value Reference Range Interpretation Comments Mean Corpuscular Hemoglobin (test code = 785-6) 34.4 28-32 H [facility] [place]Mean Corpuscular Hemoglobin Concent 2018-05-17 23:55:00* Test Item Value Reference Range Interpretation Comments Mean Corpuscular Hemoglobin Concent (test code = 786-4) 34.9 31-35 [facility] [place]Red Cell Distribution Jdjpo1832-49-61 23:55:00* Test Item Value Reference Range Interpretation Comments Red Cell Distribution Width (test code = 17555-8) 13.1 11.7 -14.4 [facility] [place]Platelet Lrosn2139-84-44 23:55:00* Test Item Value Reference Range Interpretation Comments Platelet Count (test code = 777-3) 169 140-360 [facility] [place]Neutrophils (%) (Auto)2018-05-17 23:55:00 * Test Item Value Reference Range Interpretation Comments Neutrophils (%) (Auto) (test code = 83250-5) 57.4 38.7-80.0 [facility] [place]Lymphocytes (%) (Auto)2018-05-17 23:55:00 * Test Item Value Reference Range Interpretation Comments Lymphocytes (%) (Auto) (test code = 736-9) 28.9 18.0-39.1 [facility] [place]Monocytes (%) (Auto)2018-05-17 23:55:00* Test Item Value Reference Range Interpretation Comments Monocytes (%) (Auto) (test code = 5905-5) 10.6 4.4-11.3 [facility] [place]Eosinophils (%) (Auto)2018-05-17 23:55:00 * Test Item Value Reference Range Interpretation Comments Eosinophils (%) (Auto) (test code = 713-8) 2.6 0.0-6.0 [facility] [place]Basophils (%) (Auto)2018-05-17 23:55:00* Test Item Value Reference Range Interpretation Comments Basophils (%) (Auto) (test code = 706-2) 0.3 0.0-1.0 [facility] [place]IM GRANULOCYTES %2018-05-17 23:55:00* Test Item Value Reference Range Interpretation Comments IM GRANULOCYTES % (test code = IM GRANULOCYTES %) 0.2 0.0- 1.0 [facility] [place]Neutrophils # (Auto)2018-05-17 23:55:00* Test Item Value Reference Range Interpretation Comments Neutrophils # (Auto) (test code = 751-8) 3.5 2.1-6.9 [facility] [place]Lymphocytes # (Auto)2018-05-17 23:55:00* Test Item Value Reference Range Interpretation Comments Lymphocytes # (Auto) (test code = 23314-8) 1.8 1.0-3.2 [facility] [place]Monocytes # (Auto)2018-05-17 23:55:00* Test Item Value Reference Range Interpretation Comments Monocytes # (Auto) (test code = 742-7) 0.7 0.2-0.8 [facility] [place]Eosinophils # (Auto)2018-05-17 23:55:00* Test Item Value Reference Range Interpretation Comments Eosinophils # (Auto) (test code = 711-2) 0.2 0.0-0.4 [facility] [place]Basophils # (Auto)2018-05-17 23:55:00* Test Item Value Reference Range Interpretation Comments Basophils # (Auto) (test code = 704-7) 0.0 0.0-0.1 [facility] [place]Absolute Immature Granulocyte (auto 2018-05-17 23:55:00* Test Item Value Reference Range Interpretation Comments Absolute Immature Granulocyte (auto (agustina t code = Absolute Immature Granulocyte (auto) 0.01 0-0.1 [facility] [place]White Blood Cgrxm0497-14-33 23:55:00* Test Item Value Reference Range Interpretation Comments White Blood Count (test code = 6690-2) 6.13 4.8-10.8 [facility] [place]Red Blood Vdfqr3216-86-52 23:55:00* Test Item Value Reference Range Interpretation Comments Red Blood Count (test code = 789-8) 4.21 4.3-5.7 L [facility] [place]Hemoglobin2019-04-11 23:55:00* Test Item Value Reference Range Interpretation Comments Hemoglobin (test code = 89370-4) 14.5 14.0-18.0 [facility] [place]Hematocrit2019-04-11 23:55:00* Test Item Value Reference Range Interpretation Comments Hematocrit (test code = 4544-3) 41.5 38.2-49.6 [facility] [place]Mean Corpuscular Xynnny6080-82-17 23:55:00* Test Item Value Reference Range Interpretation Comments Mean Corpuscular Volume (test code = 787-2) 98.6 81-99 [facility] [place]Mean Corpuscular Ajzwxvhofq2867-20-28 23:55:00* Test Item Value Reference Range Interpretation Comments Mean Corpuscular Hemoglobin (test code = 785-6) 34.4 28-32 H [facility] [place]Mean Corpuscular Hemoglobin Concent 2018-05-17 23:55:00* Test Item Value Reference Range Interpretation Comments Mean Corpuscular Hemoglobin Concent (test code = 786-4) 34.9 31-35 [facility] [place]Red Cell Distribution Ctbip9645-79-84 23:55:00* Test Item Value Reference Range Interpretation Comments Red Cell Distribution Width (test code = 68648-9) 13.1 11.7 -14.4 [facility] [place]Platelet Zuvui2712-06-68 23:55:00* Test Item Value Reference Range Interpretation Comments Platelet Count (test code = 777-3) 169 140-360 [facility] [place]Neutrophils (%) (Auto)2018-05-17 23:55:00 * Test Item Value Reference Range Interpretation Comments Neutrophils (%) (Auto) (test code = 85864-4) 57.4 38.7-80.0 [facility] [place]Lymphocytes (%) (Auto)2018-05-17 23:55:00 * Test Item Value Reference Range Interpretation Comments Lymphocytes (%) (Auto) (test code = 736-9) 28.9 18.0-39.1 [facility] [place]Monocytes (%) (Auto)2018-05-17 23:55:00* Test Item Value Reference Range Interpretation Comments Monocytes (%) (Auto) (test code = 5905-5) 10.6 4.4-11.3 [facility] [place]Eosinophils (%) (Auto)2018-05-17 23:55:00 * Test Item Value Reference Range Interpretation Comments Eosinophils (%) (Auto) (test code = 713-8) 2.6 0.0-6.0 [facility] [place]Basophils (%) (Auto)2018-05-17 23:55:00* Test Item Value Reference Range Interpretation Comments Basophils (%) (Auto) (test code = 706-2) 0.3 0.0-1.0 [facility] [place]IM GRANULOCYTES %2018-05-17 23:55:00* Test Item Value Reference Range Interpretation Comments IM GRANULOCYTES % (test code = IM GRANULOCYTES %) 0.2 0.0- 1.0 [facility] [place]Neutrophils # (Auto)2018-05-17 23:55:00* Test Item Value Reference Range Interpretation Comments Neutrophils # (Auto) (test code = 751-8) 3.5 2.1-6.9 [facility] [place]Lymphocytes # (Auto)2018-05-17 23:55:00* Test Item Value Reference Range Interpretation Comments Lymphocytes # (Auto) (test code = 37286-2) 1.8 1.0-3.2 [facility] [place]Monocytes # (Auto)2018-05-17 23:55:00* Test Item Value Reference Range Interpretation Comments Monocytes # (Auto) (test code = 742-7) 0.7 0.2-0.8 [facility] [place]Eosinophils # (Auto)2018-05-17 23:55:00* Test Item Value Reference Range Interpretation Comments Eosinophils # (Auto) (test code = 711-2) 0.2 0.0-0.4 [facility] [place]Basophils # (Auto)2018-05-17 23:55:00* Test Item Value Reference Range Interpretation Comments Basophils # (Auto) (test code = 704-7) 0.0 0.0-0.1 [facility] [place]Absolute Immature Granulocyte (auto 2018-05-17 23:55:00* Test Item Value Reference Range Interpretation Comments Absolute Immature Granulocyte (auto (agustina t code = Absolute Immature Granulocyte (auto) 0.01 0-0.1 [facility] [place]White Blood [id number] 23:55:00* Test Item Value Reference Range Interpretation Comments White Blood Count (test code = 6690-2) 6.13 4.8-10.8 [facility] [place]Red Blood Zksgc8251-89-81 23:55:00* Test Item Value Reference Range Interpretation Comments Red Blood Count (test code = 789-8) 4.21 4.3-5.7 L [facility] [place]Hemoglobin2019-04-11 23:55:00* Test Item Value Reference Range Interpretation Comments Hemoglobin (test code = 89156-2) 14.5 14.0-18.0 [facility] [place]Hematocrit2019-04-11 23:55:00* Test Item Value Reference Range Interpretation Comments Hematocrit (test code = 4544-3) 41.5 38.2-49.6 [facility] [place]Mean Corpuscular Gdjxos8207-02-27 23:55:00* Test Item Value Reference Range Interpretation Comments Mean Corpuscular Volume (test code = 787-2) 98.6 81-99 [facility] [place]Mean Corpuscular Kyflbpjvdu4519-58-19 23:55:00* Test Item Value Reference Range Interpretation Comments Mean Corpuscular Hemoglobin (test code = 785-6) 34.4 28-32 H [facility] [place]Mean Corpuscular Hemoglobin Concent 2018-05-17 23:55:00* Test Item Value Reference Range Interpretation Comments Mean Corpuscular Hemoglobin Concent (test code = 786-4) 34.9 31-35 [facility] [place]Red Cell Distribution Mvbml5084-64-49 23:55:00* Test Item Value Reference Range Interpretation Comments Red Cell Distribution Width (test code = 61499-5) 13.1 11.7 -14.4 [facility] [place]Platelet Pcfou8137-72-83 23:55:00* Test Item Value Reference Range Interpretation Comments Platelet Count (test code = 777-3) 169 140-360 [facility] [place]Neutrophils (%) (Auto)2018-05-17 23:55:00 * Test Item Value Reference Range Interpretation Comments Neutrophils (%) (Auto) (test code = 65349-7) 57.4 38.7-80.0 [facility] [place]Lymphocytes (%) (Auto)2018-05-17 23:55:00 * Test Item Value Reference Range Interpretation Comments Lymphocytes (%) (Auto) (test code = 736-9) 28.9 18.0-39.1 [facility] [place]Monocytes (%) (Auto)2018-05-17 23:55:00* Test Item Value Reference Range Interpretation Comments Monocytes (%) (Auto) (test code = 5905-5) 10.6 4.4-11.3 [facility] [place]Eosinophils (%) (Auto)2018-05-17 23:55:00 * Test Item Value Reference Range Interpretation Comments Eosinophils (%) (Auto) (test code = 713-8) 2.6 0.0-6.0 [facility] [place]Basophils (%) (Auto)2018-05-17 23:55:00* Test Item Value Reference Range Interpretation Comments Basophils (%) (Auto) (test code = 706-2) 0.3 0.0-1.0 [facility] [place]IM GRANULOCYTES %2018-05-17 23:55:00* Test Item Value Reference Range Interpretation Comments IM GRANULOCYTES % (test code = IM GRANULOCYTES %) 0.2 0.0- 1.0 [facility] [place]Neutrophils # (Auto)2018-05-17 23:55:00* Test Item Value Reference Range Interpretation Comments Neutrophils # (Auto) (test code = 751-8) 3.5 2.1-6.9 [facility] [place]Lymphocytes # (Auto)2018-05-17 23:55:00* Test Item Value Reference Range Interpretation Comments Lymphocytes # (Auto) (test code = 29776-0) 1.8 1.0-3.2 [facility] [place]Monocytes # (Auto)2018-05-17 23:55:00* Test Item Value Reference Range Interpretation Comments Monocytes # (Auto) (test code = 742-7) 0.7 0.2-0.8 [facility] [place]Eosinophils # (Auto)2018-05-17 23:55:00* Test Item Value Reference Range Interpretation Comments Eosinophils # (Auto) (test code = 711-2) 0.2 0.0-0.4 [facility] [place]Basophils # (Auto)2018-05-17 23:55:00* Test Item Value Reference Range Interpretation Comments Basophils # (Auto) (test code = 704-7) 0.0 0.0-0.1 [facility] [place]Absolute Immature Granulocyte (auto 2018-05-17 23:55:00* Test Item Value Reference Range Interpretation Comments Absolute Immature Granulocyte (auto (agustina t code = Absolute Immature Granulocyte (auto) 0.01 0-0.1 [facility] [place]White Blood Zeeam8548-60-87 23:55:00* Test Item Value Reference Range Interpretation Comments White Blood Count (test code = 6690-2) 6.13 4.8-10.8 [facility] [place]Red Blood Bdsge4366-28-03 23:55:00* Test Item Value Reference Range Interpretation Comments Red Blood Count (test code = 789-8) 4.21 4.3-5.7 L [facility] [place]Hemoglobin2019-04-11 23:55:00* Test Item Value Reference Range Interpretation Comments Hemoglobin (test code = 17229-4) 14.5 14.0-18.0 [facility] [place]Hematocrit2019-04-11 23:55:00* Test Item Value Reference Range Interpretation Comments Hematocrit (test code = 4544-3) 41.5 38.2-49.6 [facility] [place]Mean Corpuscular Hhunvm9077-94-43 23:55:00* Test Item Value Reference Range Interpretation Comments Mean Corpuscular Volume (test code = 787-2) 98.6 81-99 [facility] [place]Mean Corpuscular Sslulaetof0683-46-48 23:55:00* Test Item Value Reference Range Interpretation Comments Mean Corpuscular Hemoglobin (test code = 785-6) 34.4 28-32 [facility] Hem[facility] Concent 2018-05-17 23:55:00* Test Item Value Reference Range Interpretation Comments Mean Corpuscular Hemoglobin Concent (test code = 786-4) 34.9 31-35 [facility] [place]Red Cell Distribution Qkvpn4334-13-78 23:55:00* Test Item Value Reference Range Interpretation Comments Red Cell Distribution Width (test code = 15902-8) 13.1 11.7 -14.4 [facility] [place]Platelet Xaccz5102-45-39 23:55:00* Test Item Value Reference Range Interpretation Comments Platelet Count (test code = 777-3) 169 140-360 [facility] [place]Neutrophils (%) (Auto)2018-05-17 23:55:00 * Test Item Value Reference Range Interpretation Comments Neutrophils (%) (Auto) (test code = 60599-5) 57.4 38.7-80.0 [facility] [place]Lymphocytes (%) (Auto)2018-05-17 23:55:00 * Test Item Value Reference Range Interpretation Comments Lymphocytes (%) (Auto) (test code = 736-9) 28.9 18.0-39.1 [facility] [place]Monocytes (%) (Auto)2018-05-17 23:55:00* Test Item Value Reference Range Interpretation Comments Monocytes (%) (Auto) (test code = 5905-5) 10.6 4.4-11.3 [facility] [place]Eosinophils (%) (Auto)2018-05-17 23:55:00 * Test Item Value Reference Range Interpretation Comments Eosinophils (%) (Auto) (test code = 713-8) 2.6 0.0-6.0 [facility] [place]Basophils (%) (Auto)2018-05-17 23:55:00* Test Item Value Reference Range Interpretation Comments Basophils (%) (Auto) (test code = 706-2) 0.3 0.0-1.0 [facility] [place]IM GRANULOCYTES %2018-05-17 23:55:00* Test Item Value Reference Range Interpretation Comments IM GRANULOCYTES % (test code = IM GRANULOCYTES %) 0.2 0.0- 1.0 [facility] [place]Neutrophils # (Auto)2018-05-17 23:55:00* Test Item Value Reference Range Interpretation Comments Neutrophils # (Auto) (test code = 751-8) 3.5 2.1-6.9 [facility] [place]Lymphocytes # (Auto)2018-05-17 23:55:00* Test Item Value Reference Range Interpretation Comments Lymphocytes # (Auto) (test code = 55710-6) 1.8 1.0-3.2 [facility] [place]Monocytes # (Auto)2018-05-17 23:55:00* Test Item Value Reference Range Interpretation Comments Monocytes # (Auto) (test code = 742-7) 0.7 0.2-0.8 [facility] [place]Eosinophils # (Auto)2018-05-17 23:55:00* Test Item Value Reference Range Interpretation Comments Eosinophils # (Auto) (test code = 711-2) 0.2 0.0-0.4 [facility] [place]Basophils # (Auto)2018-05-17 23:55:00* Test Item Value Reference Range Interpretation Comments Basophils # (Auto) (test code = 704-7) 0.0 0.0-0.1 [facility] [place]ervilleAbsolute Immature Granulocyte (auto 2018-05-17 23:55:00* Test Item Value Reference Range Interpretation Comments Absolute Immature Granulocyte (auto (agustina t code = Absolute Immature Granulocyte (auto) 0.01 0-0.1 [facility] [place]White Blood [id number] 23:55:00* Test Item Value Reference Range Interpretation Comments White Blood Count (test code = 6690-2) 6.13 4.8-10.8 [facility] [place]Red Blood Sgbna7513-97-64 23:55:00* Test Item Value Reference Range Interpretation Comments Red Blood Count (test code = 789-8) 4.21 4.3-5.7 L [facility] [place]Hemoglobin2019-04-11 23:55:00* Test Item Value Reference Range Interpretation Comments Hemoglobin (test code = 00629-3) 14.5 14.0-18.0 [facility] [place]Hematocrit2019-04-11 23:55:00* Test Item Value Reference Range Interpretation Comments Hematocrit (test code = 4544-3) 41.5 38.2-49.6 [facility] [place]Mean Corpuscular Oldhwm3430-18-43 23:55:00* Test Item Value Reference Range Interpretation Comments Mean Corpuscular Volume (test code = 787-2) 98.6 81-99 [facility] [place]Mean Corpuscular Dmgvxrbcdh9558-99-79 23:55:00* Test Item Value Reference Range Interpretation Comments Mean Corpuscular Hemoglobin (test code = 785-6) 34.4 28-32 H [facility] [place]Mean Corpuscular Hemoglobin Concent 2018-05-17 23:55:00* Test Item Value Reference Range Interpretation Comments Mean Corpuscular Hemoglobin Concent (test code = 786-4) 34.9 31-35 [facility] [place]Red Cell Distribution Brwnv0752-30-22 23:55:00* Test Item Value Reference Range Interpretation Comments Red Cell Distribution Width (test code = 00381-2) 13.1 11.7 -14.4 [facility] [place]Platelet Ttvxj9025-19-47 23:55:00* Test Item Value Reference Range Interpretation Comments Platelet Count (test code = 777-3) 169 140-360 [facility] [place]ervilleNeutrophils (%) (Auto)2018-05-17 23:55:00 * Test Item Value Reference Range Interpretation Comments Neutrophils (%) (Auto) (test code = 43099-3) 57.4 38.7-80.0 [facility] [place]Lymphocytes (%) (Auto)2018-05-17 23:55:00 * Test Item Value Reference Range Interpretation Comments Lymphocytes (%) (Auto) (test code = 736-9) 28.9 18.0-39.1 [facility] [place]Monocytes (%) (Auto)2018-05-17 23:55:00* Test Item Value Reference Range Interpretation Comments Monocytes (%) (Auto) (test code = 5905-5) 10.6 4.4-11.3 [facility] [place]Eosinophils (%) (Auto)2018-05-17 23:55:00 * Test Item Value Reference Range Interpretation Comments Eosinophils (%) (Auto) (test code = 713-8) 2.6 0.0-6.0 [facility] [place]Basophils (%) (Auto)2018-05-17 23:55:00* Test Item Value Reference Range Interpretation Comments Basophils (%) (Auto) (test code = 706-2) 0.3 0.0-1.0 [facility] [place]IM GRANULOCYTES %2018-05-17 23:55:00* Test Item Value Reference Range Interpretation Comments IM GRANULOCYTES % (test code = IM GRANULOCYTES %) 0.2 0.0- 1.0 [facility] [place]Neutrophils # (Auto)2018-05-17 23:55:00* Test Item Value Reference Range Interpretation Comments Neutrophils # (Auto) (test code = 751-8) 3.5 2.1-6.9 [facility] [place]Lymphocytes # (Auto)2018-05-17 23:55:00* Test Item Value Reference Range Interpretation Comments Lymphocytes # (Auto) (test code = 68042-5) 1.8 1.0-3.2 [facility] [place]Monocytes # (Auto)2018-05-17 23:55:00* Test Item Value Reference Range Interpretation Comments Monocytes # (Auto) (test code = 742-7) 0.7 0.2-0.8 [facility] [place]Eosinophils # (Auto)2018-05-17 23:55:00* Test Item Value Reference Range Interpretation Comments Eosinophils # (Auto) (test code = 711-2) 0.2 0.0-0.4 [facility] [place]Basophils # (Auto)2018-05-17 23:55:00* Test Item Value Reference Range Interpretation Comments Basophils # (Auto) (test code = 704-7) 0.0 0.0-0.1 [facility] [place]ervilleAbsolute Immature Granulocyte (auto 2018-05-17 23:55:00* Test Item Value Reference Range Interpretation Comments Absolute Immature Granulocyte (auto (agustina t code = Absolute Immature Granulocyte (auto) 0.01 0-0.1 [facility] [place]ervilleWhite Blood Wkleq3445-69-79 23:55:00* Test Item Value Reference Range Interpretation Comments White Blood Count (test code = 6690-2) 6.13 4.8-10.8 [facility] [place]ervilleRed Blood Frxwg9898-36-43 23:55:00* Test Item Value Reference Range Interpretation Comments Red Blood Count (test code = 789-8) 4.21 4.3-5.7 L [facility] [place]ervilleHemoglobin2019-04-11 23:55:00* Test Item Value Reference Range Interpretation Comments Hemoglobin (test code = 91585-9) 14.5 14.0-18.0 [facility] [place]ervilleHematocrit2019-04-11 23:55:00* Test Item Value Reference Range Interpretation Comments Hematocrit (test code = 4544-3) 41.5 38.2-49.6 [facility] [place]Mean Corpuscular Pjgjws2425-76-56 23:55:00* Test Item Value Reference Range Interpretation Comments Mean Corpuscular Volume (test code = 787-2) 98.6 81-99 [facility] [place]Mean Corpuscular Zglhgrihcz3441-14-71 23:55:00* Test Item Value Reference Range Interpretation Comments Mean Corpuscular Hemoglobin (test code = 785-6) 34.4 28-32 H [facility] [place]Mean Corpuscular Hemoglobin Concent 2018-05-17 23:55:00* Test Item Value Reference Range Interpretation Comments Mean Corpuscular Hemoglobin Concent (test code = 786-4) 34.9 31-35 [facility] [place]Red Cell Distribution Qjikg0530-64-46 23:55:00* Test Item Value Reference Range Interpretation Comments Red Cell Distribution Width (test code = 74013-4) 13.1 11.7 -14.4 [facility] [place]ervillePlatelet Xjwjp3556-98-07 23:55:00* Test Item Value Reference Range Interpretation Comments Platelet Count (test code = 777-3) 169 140-360 [facility] [place]ervilleNeutrophils (%) (Auto)2018-05-17 23:55:00 * Test Item Value Reference Range Interpretation Comments Neutrophils (%) (Auto) (test code = 19983-7) 57.4 38.7-80.0 [facility] [place]ervilleLymphocytes (%) (Auto)2018-05-17 23:55:00 * Test Item Value Reference Range Interpretation Comments Lymphocytes (%) (Auto) (test code = 736-9) 28.9 18.0-39.1 [facility] [place]Monocytes (%) (Auto)2018-05-17 23:55:00* Test Item Value Reference Range Interpretation Comments Monocytes (%) (Auto) (test code = 5905-5) 10.6 4.4-11.3 [facility] [place]Eosinophils (%) (Auto)2018-05-17 23:55:00 * Test Item Value Reference Range Interpretation Comments Eosinophils (%) (Auto) (test code = 713-8) 2.6 0.0-6.0 [facility] [place]Basophils (%) (Auto)2018-05-17 23:55:00* Test Item Value Reference Range Interpretation Comments Basophils (%) (Auto) (test code = 706-2) 0.3 0.0-1.0 [facility] [place]ervilleIM GRANULOCYTES %2018-05-17 23:55:00* Test Item Value Reference Range Interpretation Comments IM GRANULOCYTES % (test code = IM GRANULOCYTES %) 0.2 0.0- 1.0 [facility] [facility] [place] [facility] [place]2018-05-17 23:55:00* Test Item Value Reference Range Interpretation Comments Neutrophils # (Auto) (test code = 751-8) 3.5 2.1-6.9 [facility] [place]ymphocytes # (Auto)2018-05-17 23:55:00* Test Item Value Reference Range Interpretation Comments Lymphocytes # (Auto) (test code = 73877-8) 1.8 1.0-3.2 [facility] [place]ocytes # (Auto)2018-05-17 23:55:00* Test Item Value Reference Range Interpretation Comments Monocytes # (Auto) (test code = 742-7) 0.7 0.2-0.8 [facility] [place] # (Auto)2018-05-17 23:55:00* Test Item Value Reference Range Interpretation Comments Eosinophils # (Auto) (test code = 711-2) 0.2 0.0-0.4 [facility] [place] # (Auto)2018-05-17 23:55:00* Test Item Value Reference Range Interpretation Comments Basophils # (Auto) (test code = 704-7) 0.0 0.0-0.1 [facility] [place] Immature Granulocyte (auto 2018-05-17 23:55:00* Test Item Value Reference Range Interpretation Comments Absolute Immature Granulocyte (auto (agustina t code = Absolute Immature Granulocyte (auto) 0.01 0-0.1 [facility] [place]White Blood [id number] 23:55:00* Test Item Value Reference Range Interpretation Comments White Blood Count (test code = 6690-2) 6.13 4.8-10.8 [facility] [place]Red Blood [id number] 23:55:00* Test Item Value Reference Range Interpretation Comments Red Blood Count (test code = 789-8) 4.21 4.3-5.7 L [facility] [place]emoglobin2019-04-11 23:55:00* Test Item Value Reference Range Interpretation Comments Hemoglobin (test code = 60797-8) 14.5 14.0-18.0 [facility] [place]ematocrit2019-04-11 23:55:00* Test Item Value Reference Range Interpretation Comments Hematocrit (test code = 4544-3) 41.5 38.2-49.6 [facility] [place]Mean Corpuscular [id number] 23:55:00* Test Item Value Reference Range Interpretation Comments Mean Corpuscular Volume (test code = 787-2) 98.6 81-99 [facility] [place]Mean Corpuscular [id number] 23:55:00* Test Item Value Reference Range Interpretation Comments Mean Corpuscular Hemoglobin (test code = 785-6) 34.4 28-32 H [facility] [place]Mean Corpuscular Hemoglobin Concent 2018-05-17 23:55:00* Test Item Value Reference Range Interpretation Comments Mean Corpuscular Hemoglobin Concent (test code = 786-4) 34.9 31-35 [facility] [place]Red Cell Distribution [id number] 23:55:00* Test Item Value Reference Range Interpretation Comments Red Cell Distribution Width (test code = 85018-9) 13.1 11.7 -14.4 [facility] [place]Platelet [id number] 23:55:00* Test Item Value Reference Range Interpretation Comments Platelet Count (test code = 777-3) 169 140-360 [facility] [place]Neut[place]ils (%) (Auto)2018-05-17 23:55:00 * Test Item Value Reference Range Interpretation Comments Neutrophils (%) (Auto) (test code = 22938-9) 57.4 38.7-80.0 [facility] [place]Lymphocytes (%) (Auto)2018-05-17 23:55:00 * Test Item Value Reference Range Interpretation Comments Lymphocytes (%) (Auto) (test code = 736-9) 28.9 18.0-39.1 [facility] [place]ocytes (%) (Auto)2018-05-17 23:55:00* Test Item Value Reference Range Interpretation Comments Monocytes (%) (Auto) (test code = 5905-5) 10.6 4.4-11.3 [facility] [place]osinophils (%) (Auto)2018-05-17 23:55:00 * Test Item Value Reference Range Interpretation Comments Eosinophils (%) (Auto) (test code = 713-8) 2.6 0.0-6.0 [facility] [place]ophils (%) (Auto)2018-05-17 23:55:00* Test Item Value Reference Range Interpretation Comments Basophils (%) (Auto) (test code = 706-2) 0.3 0.0-1.0 [facility] [place]IM GRANULOCYTES %2018-05-17 23:55:00* Test Item Value Reference Range Interpretation Comments IM GRANULOCYTES % (test code = IM GRANULOCYTES %) 0.2 0.0- 1.0 [facility] [place]ut[place]ils # (Auto)2018-05-17 23:55:00* Test Item Value Reference Range Interpretation Comments Neutrophils # (Auto) (test code = 751-8) 3.5 2.1-6.9 [facility] [place]Lymphocytes # (Auto)2018-05-17 23:55:00* Test Item Value Reference Range Interpretation Comments Lymphocytes # (Auto) (test code = 20001-8) 1.8 1.0-3.2 [facility] [place]ocytes # (Auto)2018-05-17 23:55:00* Test Item Value Reference Range Interpretation Comments Monocytes # (Auto) (test code = 742-7) 0.7 0.2-0.8 [facility] [place]osinophils # (Auto)2018-05-17 23:55:00* Test Item Value Reference Range Interpretation Comments Eosinophils # (Auto) (test code = 711-2) 0.2 0.0-0.4 [facility] [place]ophils # (Auto)2018-05-17 23:55:00* Test Item Value Reference Range Interpretation Comments Basophils # (Auto) (test code = 704-7) 0.0 0.0-0.1 [facility] [place]Absolute Immature Granulocyte (auto 2018-05-17 23:55:00* Test Item Value Reference Range Interpretation Comments Absolute Immature Granulocyte (auto (agustina t code = Absolute Immature Granulocyte (auto) 0.01 0-0.1 [facility] [place]
--- NOTE | 2019-12-22 22:59 | Diagnostic Imaging Report ---
EXAMINATION: CHEST SINGLE (PORTABLE) INDICATION: ^Y ^FEVER, CHEST TIGHTNESS ^Y COMPARISON: Chest x-ray 05/18/2018 FINDINGS: TUBES and LINES: None. LUNGS: Low lung volumes. Subtle right mid and left lower basilar haziness. No consolidations. PLEURA: No pleural effusion or pneumothorax. HEART AND MEDIASTINUM: The cardiomediastinal silhouette is unremarkable. BONES AND SOFT TISSUES: No acute osseous lesion. Soft tissues are unremarkable. UPPER ABDOMEN: No free air under the diaphragm. IMPRESSION: Subtle right mid and left lower basilar haziness, can be due to atelectasis or pneumonia. Signed by: Arun Tejeda DO on 12/22/2019 10:56 PM
== END 2019-12-22 23:30 | disposition home or self-care (01) ==
LOC: ER 20:01
DX: R50.9 Fever, unspecified (principal); J11.1 Influenza due to unidentified influenza virus with other respiratory manifestations; I10 Essential (primary) hypertension; E11.65 Type 2 diabetes mellitus with hyperglycemia
CPT/HCPCS: 36415; 71045; 80053; 81001; 82550; 82553; 83605; 84484; 85025; 87040; 87086; 87400; 93005; 99284

== ENCOUNTER → 2022-05-27 | Outpatient (CLI) | payer MEDICARE | LOC: DX 09:32 | PROVIDERS: ATTEND Nurse Practitioner Family | DX: R47.02 Dysphasia (principal) | CPT/HCPCS: 74230 ==